=== PATIENT | female | born 1940 | race Caucasian/White ===

== ENCOUNTER 2019-04-30 19:19 | Emergency (ER) | payer MEDICARE, OTHER ==
[~2019-04-30] VITALS: Ht 162.6 cm; Wt 76.4 kg
--- NOTE | 2019-04-30 20:24 | REP ---
RIGHT ELBOW COMPLETE: 04/30/2019. Clinical history: Trauma, fall. Findings: No prior study. Radial head and capitellum align normally on all four views with no radial head fracture. Proximal radius and olecranon with the ulnar shaft were all unremarkable. There is soft tissue swelling about the olecranon that may reflect some traumatic bursitis. I do not see fracture, avulsion, elbow joint effusion or abnormal soft-tissue calcification. There is some minor spurring at the lateral epicondyle, chronic. Impression: 1. Some minor soft tissue swelling over the elbow that may reflect some traumatic bursitis or hematoma. I do not see a fracture, avulsion, joint effusion or other acute bony finding. Electronically Signed by Chris Rosario MD 04/30/2019 08:30 P
[2019-04-30] MEDS ORDERED: COMBAER6 INH (21:26)
[2019-04-30] MEDS ORDERED: HYDR25TAB (21:26)
[2019-04-30] MEDS ORDERED: MECL-86 PO (21:26)
[2019-04-30] MEDS ORDERED: GABA-1171 (21:26)
[2019-04-30] MEDS ORDERED: VOLT1GEL15 TOP (21:26)
[2019-04-30] MEDS ORDERED: OMEP-218 (21:26)
[2019-04-30] MEDS ORDERED: AMOX875T2 (21:26)
[2019-04-30] MEDS ORDERED: TRAM50TA2 (21:26)
[2019-04-30] MEDS ORDERED: PRIM50TA6 PO (21:26)
[2019-04-30] MEDS ORDERED: TRAM50TA2 PO (22:28)
[2019-04-30] MEDS ORDERED: traMADol 50 MG TAB PO ONE (22:30)
[2019-04-30 22:32] VITALS: BP 146/67
== END 2019-04-30 22:39 | disposition home or self-care (01) ==
LOC: M ED 19:19
DX: S50.01XA Contusion of right elbow, initial encounter (principal); W01.198A Fall on same level from slipping, tripping and stumbling with subsequent striking against other object, initial encounter; Y92.098 Other place in other non-institutional residence as the place of occurrence of the external cause; I10 Essential (primary) hypertension; M19.90 Unspecified osteoarthritis, unspecified site; M54.9 Dorsalgia, unspecified; G25.81 Restless legs syndrome; Z88.8 Allergy status to other drugs, medicaments and biological substances; Z79.899 Other long term (current) drug therapy; Z79.2 Long term (current) use of antibiotics; Z79.891 Long term (current) use of opiate analgesic

== ENCOUNTER → 2019-06-09 | Outpatient (REF) | payer MEDICARE, OTHER ==
[~2019-06-09] MED LIST: AMOX875T2; COMBAER6 INH; GABA-1171; HYDR25TAB; MECL-86 PO; OMEP-218; PRIM50TA6 PO; TRAM50TA2; TRAM50TA2 PO; VOLT1GEL15 TOP
[2019-06-09 14:01] LABS: BASO % 0.4 % (0.0-1.0); EOS % 0.2 % (0.0-3.0); HEMATOCRIT 35.2 % (36.0-47.0); HEMOGLOBIN 11.8 g/dl (12.0-15.5); LYMPH # 2.6 10^3/uL (1.5-5.0); LYMPH % 48.1 % (24.0-44.0); MEAN CORPUSCULAR HEMOGLOBIN 31.4 pg (27.0-33.0); MEAN CORPUSCULAR HGB CONC 33.5 g/dl (32.0-36.5); MEAN CORPUSCULAR VOLUME 93.6 fl (80.0-96.0); MONO # 0.5 10^3/uL (0.0-0.8); MONO % 8.5 % (0.0-5.0); NEUTROPHILS # 2.3 10^3/uL (1.5-8.5); NEUTROPHILS % 42.6 % (36.0-66.0); PLATELET COUNT, AUTOMATED 226 10^3/uL (150-450); RED BLOOD COUNT 3.76 10^6/uL (4.00-5.40); WHITE BLOOD COUNT 5.4 10^3/uL (4.0-10.0)
[2019-06-09 14:23] LABS: ALBUMIN 3.4 GM/DL (3.2-5.2); BILIRUBIN,TOTAL 0.5 MG/DL (0.2-1.0); CALCIUM LEVEL 10.2 MG/DL (8.8-10.2); CREATININE FOR GFR 1.02 MG/DL (0.55-1.30); GLOMERULAR FILTRATION RATE 55.9 (>39); VALPROIC ACID (DEPAKOTE) 68.2 UG/ML (50.0-100.0)
== END ==
LOC: M LABNEURO 13:08
PROVIDERS: ATTEND Psychiatry & Neurology Neurology
DX: G40.909 Epilepsy, unspecified, not intractable, without status epilepticus (principal)

== ENCOUNTER → 2019-09-03 | Outpatient (REF) | payer MEDICARE, OTHER ==
[2019-09-03 12:56] LABS: BASO % 0.3 % (0.0-1.0); EOS % 0.2 % (0.0-3.0); HEMATOCRIT 36.6 % (36.0-47.0); HEMOGLOBIN 12.2 g/dl (12.0-15.5); LYMPH # 2.4 10^3/uL (1.5-5.0); MEAN CORPUSCULAR HEMOGLOBIN 31.4 pg (27.0-33.0); MEAN CORPUSCULAR HGB CONC 33.3 g/dl (32.0-36.5); MEAN CORPUSCULAR VOLUME 94.1 fl (80.0-96.0); MONO # 0.6 10^3/uL (0.0-0.8); MONO % 9.7 % (0.0-5.0); NEUTROPHILS % 49.5 % (36.0-66.0); PLATELET COUNT, AUTOMATED 275 10^3/uL (150-450); RED BLOOD COUNT 3.89 10^6/uL (4.00-5.40); WHITE BLOOD COUNT 6.1 10^3/uL (4.0-10.0)
[2019-09-03 13:43] LABS: ALBUMIN 3.3 GM/DL (3.2-5.2); ALT/SGPT 25 U/L (12-78); BILIRUBIN,TOTAL 0.2 MG/DL (0.2-1.0); BLOOD UREA NITROGEN 23 MG/DL (7-18); CALCIUM LEVEL 10.4 MG/DL (8.8-10.2); CARBON DIOXIDE LEVEL 32 MEQ/L (21-32); CHLORIDE LEVEL 104 MEQ/L (98-107); CHOLESTEROL LEVEL 223 MG/DL (<200); CHOLESTEROL RISK RATIO 4.744 (<5); CREATININE FOR GFR 1.22 MG/DL (0.55-1.30); FERRITIN 92 NG/ML (8-252); FOLATE 11.7 NG/ML; FREE T4 1.07 NG/DL (0.76-1.46); GLOMERULAR FILTRATION RATE 45.5 (>39); GLUCOSE, FASTING 102 MG/DL (70-100); HDL CHOLESTEROL 47 MG/DL (>40); LDL CHOLESTEROL 139 MG/DL (<100); NON-HDL-C 176 MG/DL; POTASSIUM SERUM 4.8 MEQ/L (3.5-5.1); SODIUM LEVEL 141 MEQ/L (136-145); THYROID STIMULATING HORMONE 0.831 uIU/ML (0.358-3.740); TOTAL 25(OH) VITAMIN D 38.8 NG/ML (30.0-100.0); TRIGLYCERIDES LEVEL 185 MG/DL (<150); VITAMIN B12 LEVEL > 2000 PG/ML
== END ==
LOC: M SFHCPLAZ 10:11
PROVIDERS: ATTEND Nurse Practitioner Family
DX: R53.83 Other fatigue (principal); I10 Essential (primary) hypertension; D64.9 Anemia, unspecified; Z13.220 Encounter for screening for lipoid disorders; Z79.899 Other long term (current) drug therapy
CPT/HCPCS: 36415; 80053; 80061; 82306; 82607; 82728; 82746; 84439; 84443; 85025; G0463

== ENCOUNTER → 2020-01-15 | Outpatient (REF) | payer MEDICARE, OTHER ==
[2020-01-15 18:21] LABS: CALCIUM LEVEL 10.1 MG/DL (8.8-10.2); CREATININE FOR GFR 1.3 MG/DL (0.55-1.30); GLOMERULAR FILTRATION RATE 42.3 (>39)
== END ==
LOC: M SFHCPLAZ 14:25
PROVIDERS: ATTEND Family Medicine
DX: N18.30 Chronic kidney disease, stage 3 unspecified (principal)

== ENCOUNTER → 2020-01-17 | Outpatient (CLI) | payer MEDICARE, OTHER | LOC: M LABSMTC 10:31 | PROVIDERS: ATTEND Orthopaedic Surgery | DX: Z01.812 Encounter for preprocedural laboratory examination (principal); Z20.828 Contact with and (suspected) exposure to other viral communicable diseases ==

== ENCOUNTER → 2020-02-28 | Outpatient (CLI) | payer MEDICARE, OTHER | LOC: M LABSMTC 11:05 | PROVIDERS: ATTEND Orthopaedic Surgery | DX: Z01.812 Encounter for preprocedural laboratory examination (principal); Z20.828 Contact with and (suspected) exposure to other viral communicable diseases ==

== ENCOUNTER 2020-05-10 16:12 | Emergency (ER) | payer MEDICARE, OTHER ==
[~2020-05-10] VITALS: Ht 160 cm; Wt 75.0 kg
[~2020-05-10 16:12] MED LIST changes: +HYDR-3490; -HYDR25TAB
--- NOTE | 2020-05-10 16:51 | REP ---
INDICATION: TRAUMA. COMPARISON: No comparison study. TECHNIQUE: Two views.. FINDINGS: The lungs are well inflated and free of infiltrate. The pleural angles are sharp. The heart size is normal. Pulmonary vasculature is not increased. No significant bony abnormality is seen. Thoracic aorta is somewhat tortuous and calcific. IMPRESSION: No active disease.. <Electronically signed by Lucio Diaz > 05/10/20 [id number]
--- NOTE | 2020-05-10 16:53 | REP ---
INDICATION: TRAUMA. COMPARISON: None. TECHNIQUE: Three views of the right shoulder are obtained. FINDINGS: Three views right shoulder demonstrate diffuse osteopenia. There is periarticular soft tissue calcification adjacent to the superolateral humeral head consistent with calcific tendinitis or bursitis. There is acromion process spurring along its superior angle. Mild AC joint osteoarthritic spurring is seen. No erosive changes seen. No fracture or subluxation is noted. IMPRESSION: No traumatic abnormality noted. Soft tissue calcification consistent with calcific tendinitis or bursitis. Osteopenia and AC joint spurring. <Electronically signed by Lucio Diaz > 05/10/20 [id number]
[2020-05-10] MEDS ORDERED: traMADol 50 MG TAB PO ONE (18:45)
[2020-05-10] MEDS ORDERED: LIDOCAINE 5% (LIDODERM) PATCH TD ONE (18:45)
--- NOTE | 2020-05-10 20:04 | REPVR ---
PROCEDURE INFORMATION: Exam: CT Chest Without Contrast; Diagnostic Exam date and time: 05/10/2020 7:11 PM Age: 79 years old Clinical indication: Injury or trauma; Fall; Blunt trauma (contusions or hematomas); Additional info: Left anterior rib pain, R scapular pain post fall TECHNIQUE: Imaging protocol: Diagnostic computed tomography of the chest without contrast. 3D rendering (Not supervised by radiologist): MIP and/or 3D reconstructed images were created by the technologist. Radiation optimization: All CT scans at this facility use at least one of these dose optimization techniques: automated exposure control; mA and/or kV adjustment per patient size (includes targeted exams where dose is matched to clinical indication); or iterative reconstruction. COMPARISON: [place] Chest, 2 view PA, Lat 05/10/2020 4:27 PM FINDINGS: Thyroid: Unremarkable. Trachea: Normal. Bronchial tree: Normal. Lungs: There are several small pulmonary nodules in both upper lobes measuring up to 3 mm (images 26, 30, 33, 34, 35, 36, 40, 43, 45, 46, 47, and 49 of the axial series 201). There are mild paraseptal emphysematous changes in the upper lobes. No lung consolidation or pulmonary contusion is noted. Pleural spaces: Normal. No pneumothorax or pleural effusion. Heart: No cardiomegaly or pericardial effusion. There are coronary artery and mitral annular calcifications. Mediastinal space: No mediastinal mass, fluid collection, or pneumomediastinum. Aorta: No thoracic aortic aneurysm or intramural hematoma is noted. There are extensive atherosclerotic calcifications. Lymph nodes: There are subcentimeter mediastinal lymph nodes. However, no abnormally enlarged lymph nodes measuring greater than 1 cm in short axis are noted. Gallbladder and bile ducts: There has been a cholecystectomy. There is no fluid collection in the gallbladder fossa. The common bile duct is dilated and measures 10 mm in diameter at the level of the marleni hepatis but tapers to a normal caliber of 5 mm in diameter at the level of the head of the pancreas. No calcified stones are seen in the common bile duct. Spleen: Unremarkable. No splenomegaly is noted. Adrenal glands: Normal. No adrenal mass is noted. Limited kidneys: There are benign-appearing cysts in both kidneys measuring up to 2.3 cm in the upper pole of the right kidney, for which follow-up is not necessary. The kidneys were not fully imaged. Bones/joints: There is no fracture or dislocation. No suspicious osteolytic or osteoblastic lesion. There is a mild levoscoliosis of the thoracic spine. There are endplate spurs in the thoracic spine. Soft tissues: There is a 1 mm calcific density in the right supraspinatus tendon, which is compatible with calcific tendinitis. No soft tissue fluid collection. IMPRESSION: 1. No noncontrast CT evidence for acute traumatic injury in the chest. 2. Several pulmonary nodules in both upper lobes measuring up to 3 mm. For patients at low risk (minimal or absent history of smoking and of other known risk factors), no routine follow-up is indicated. For patients at high risk (history of smoking or of other known risk factors), consider optional CT Chest at 12 months. (Reference: Adalgisa) 3. Right supraspinatus calcific tendinitis. COMMENTS: Consistent with the [employer]'s Incidental Findings Committee white paper (J Am Beni Radiol 2018): Any incidental renal lesion less than 1 cm or classified as too small to characterize, or any incidental cystic renal lesion characterized as simple-appearing, is likely benign. No follow-up imaging is recommended for these lesions per consensus recommendations based on imaging criteria. REFERENCES: Adalgisa H, et al. Guidelines for Management of Incidental Pulmonary Nodules Detected on CT Images: From the Fleischner Society 2017. Radiology. 2017;284(1):228-243. Electronically signed by: Ramirez Luciano On 05/10/2020 20:04:23 PM
[2020-05-10] MEDS ORDERED: TRAM50TA2 PO (20:35)
[2020-05-10] MEDS ORDERED: ASPE4PAD TOP (20:35)
[2020-05-10 20:48] VITALS: BP 180/88
[2020-05-10] MEDS ORDERED: **NOTE PATIENT COMMENT** MISC XX SCH (21:00)
--- NOTE | 2020-05-11 11:52 | ED PDOC ---
Post-Departure Follow-Up ct chest faxed to aleena marroquin for fu Rashaad Mcgregor MD May 11, 2020 11:52
== END 2020-05-10 20:51 | disposition home or self-care (01) ==
LOC: M ED 16:12
DX: R07.89 Other chest pain (principal); S40.011A Contusion of right shoulder, initial encounter; W18.12XA Fall from or off toilet with subsequent striking against object, initial encounter; Y92.9 Unspecified place or not applicable; Y93.E5 Activity, floor mopping and cleaning; Y99.9 Unspecified external cause status; I25.84 Coronary atherosclerosis due to calcified coronary lesion; R59.9 Enlarged lymph nodes, unspecified; N28.1 Cyst of kidney, acquired; M75.31 Calcific tendinitis of right shoulder; M85.811 Other specified disorders of bone density and structure, right shoulder; M25.711 Osteophyte, right shoulder; I10 Essential (primary) hypertension; R91.8 Other nonspecific abnormal finding of lung field; Z79.899 Other long term (current) drug therapy; Z88.8 Allergy status to other drugs, medicaments and biological substances

== ENCOUNTER → 2020-05-25 | Outpatient (CLI) | payer MEDICARE, OTHER ==
[~2020-05-25] MED LIST changes: +ASPE4PAD TOP
[2020-05-25 12:19] LABS: CREATININE FOR GFR 1.29 MG/DL (0.55-1.30); GLOMERULAR FILTRATION RATE 42.6 (>39)
== END ==
LOC: M LAB 11:03
PROVIDERS: ATTEND Pain Medicine Interventional Pain Medicine
DX: M96.1 Postlaminectomy syndrome, not elsewhere classified (principal)

== ENCOUNTER → 2020-06-01 | Outpatient (CLI) | payer MEDICARE, OTHER ==
[~2020-06-01] MED LIST changes: +PROHANCE 279.3MG/ML 15ML VIAL As Ordered ONE
--- NOTE | 2020-06-01 10:43 | REPVR ---
PROCEDURE INFORMATION: Exam: MR Lumbar Spine Without and With Contrast Exam date and time: 06/01/2020 10:18 AM Age: 80 years old Clinical indication: Low back pain; Prior surgery; Surgery date: 6+ months; Surgery type: Laminectomy 30 yrs ago; Additional info: Postlaminectomy syndrome, not elsewhere classified TECHNIQUE: Imaging protocol: Multiplanar magnetic resonance images of the lumbar spine without and with intravenous contrast. Contrast material: PROHANCE; Contrast volume: 8 ml; Contrast route: INTRAVENOUS (IV); COMPARISON: No relevant prior studies available. FINDINGS: Vertebrae: There is a pronounced lumbar dextroscoliotic curvature. There is mild ventral wedging of the L1 body with a Schmorl's node, chronic. Vertebral body heights are otherwise within normal limits. Diffuse heterogeneity of marrow is most suggestive of age-related marrow conversion. There are superimposed scattered hemangiomas. Spinal cord: Normal signal. No cord compression. L1-L2: There is a diffuse disc osteophyte complex. There is moderate facet hypertrophy. There is mild right and gcaa-di-cijjimdi left neural foraminal narrowing. L2-L3: There is diffuse disc bulging. There is moderate facet and ligamentous hypertrophy. There is spyq-sk-cgcbnbzu left neural foraminal narrowing. L3-L4: There is diffuse disc bulging. There is severe facet and ligamentous hypertrophy. There is mild bilateral neural foraminal narrowing. L4-L5: There are right hemilaminectomy changes. There is shallow disc bulging. There is moderate to severe facet hypertrophy. There is mild left neural foraminal narrowing. L5-S1: There is shallow disc bulging. There is moderate to severe facet hypertrophy. There is fhje-ot-fzhgbkfs right neural foraminal narrowing. Soft tissues: Unremarkable. IMPRESSION: Degenerative disc disease and spondylosis in a background of pronounced dextroscoliosis. Changes contribute to multilevel fjih-lo-ijhdlkad neural foraminal narrowing. Electronically signed by: Vickie Agustin On 06/01/2020 10:44:03 AM
== END ==
LOC: M RAD 08:55
PROVIDERS: ATTEND Pain Medicine Interventional Pain Medicine
DX: M96.1 Postlaminectomy syndrome, not elsewhere classified (principal)
CPT/HCPCS: 72158; A9576

== ENCOUNTER → 2020-06-14 | Outpatient (CLI) | payer MEDICARE, OTHER ==
[~2020-06-14] MED LIST changes: -PROHANCE 279.3MG/ML 15ML VIAL As Ordered ONE
[2020-06-14 09:50] LABS: HEMATOCRIT 37.4 % (36.0-47.0); HEMOGLOBIN 12.4 g/dl (12.0-15.5); MEAN CORPUSCULAR HEMOGLOBIN 32.3 pg (27.0-33.0); MEAN CORPUSCULAR HGB CONC 33.2 g/dl (32.0-36.5); MEAN CORPUSCULAR VOLUME 97.4 fl (80.0-96.0); PLATELET COUNT, AUTOMATED 218 10^3/uL (150-450); RED BLOOD COUNT 3.84 10^6/uL (4.00-5.40); WHITE BLOOD COUNT 6.1 10^3/uL (4.0-10.0)
[2020-06-14 10:26] LABS: ALBUMIN 3.3 GM/DL (3.2-5.2); BILIRUBIN,TOTAL 0.3 MG/DL (0.2-1.0); CALCIUM LEVEL 10.6 MG/DL (8.8-10.2); CHOLESTEROL RISK RATIO 2.984 (<5); CREATININE FOR GFR 1.13 MG/DL (0.55-1.30); GLOMERULAR FILTRATION RATE 49.6 (>39); POTASSIUM SERUM 4.6 MEQ/L (3.5-5.1); TOTAL PROTEIN 6.8 GM/DL (6.4-8.2)
[2020-06-14 11:24] LABS: HEMOGLOBIN A1c 5.4 %
== END ==
LOC: M LAB 08:54
PROVIDERS: ATTEND Nurse Practitioner Family
DX: E78.00 Pure hypercholesterolemia, unspecified (principal); R73.01 Impaired fasting glucose; D64.9 Anemia, unspecified

== ENCOUNTER → 2020-08-06 | Outpatient (CLI) | payer MEDICARE, OTHER ==
--- NOTE | 2020-08-06 14:45 | REPPI ---
INDICATION: Z01.818 PRE OP EVALUATION COMPARISON: 05/10/2020. TECHNIQUE: PA/Lateral FINDINGS: Lungs: Clear, no infiltrate. Heart: Normal in size. Mediastinum: There is calcification of the thoracic aorta. The mediastinal silhouette is unchanged. Pleural angles: Unremarkable.. Bones and soft tissues: There is osteopenia. There are degenerative changes of the spine without compression deformity. There is curvature of the thoracolumbar spine convex to the right. IMPRESSION: No acute pulmonary disease. <Electronically signed by Doe Duke > 08/06/20 [id number]
== END ==
LOC: M PLAIMG 14:23
PROVIDERS: ATTEND Family Medicine
DX: Z01.818 Encounter for other preprocedural examination (principal); M85.88 Other specified disorders of bone density and structure, other site; M19.031 Primary osteoarthritis, right wrist
CPT/HCPCS: 36415; 71046; 80048; 93005; G0463

== ENCOUNTER → 2020-08-06 | Outpatient (REF) | payer MEDICARE, OTHER ==
[2020-08-06 17:52] LABS: BLOOD UREA NITROGEN 17 MG/DL (7-18); CALCIUM LEVEL 10.7 MG/DL (8.8-10.2); CARBON DIOXIDE LEVEL 33 MEQ/L (21-32); CHLORIDE LEVEL 106 MEQ/L (98-107); CREATININE FOR GFR 0.92 MG/DL (0.55-1.30); GLOMERULAR FILTRATION RATE > 60.0 (>39); GLUCOSE, FASTING 95 MG/DL (70-100); POTASSIUM SERUM 4.3 MEQ/L (3.5-5.1); SODIUM LEVEL 140 MEQ/L (136-145)
== END ==
LOC: M SFHCPLAZ 14:23
PROVIDERS: ATTEND Family Medicine
DX: Z01.818 Encounter for other preprocedural examination (principal); M19.031 Primary osteoarthritis, right wrist

== ENCOUNTER 2020-09-25 06:31 | Observation (INO) | payer MEDICARE, OTHER ==
[~2020-09-25] VITALS: Ht 160 cm; Wt 78.4 kg
[~2020-09-25 06:31] MED LIST changes: -GABA-1171; +GABA-1171 PO; -HYDR-3490; +HYDR-3490 PO
[2020-09-25 07:09] LABS: BASO % 0.4 % (0.0-1.0); EOS % 0.4 % (0.0-3.0); HEMATOCRIT 36.8 % (36.0-47.0); HEMOGLOBIN 12.3 g/dl (12.0-15.5); LYMPH % 56.9 % (24.0-44.0); MEAN CORPUSCULAR HEMOGLOBIN 32.1 pg (27.0-33.0); MEAN CORPUSCULAR HGB CONC 33.4 g/dl (32.0-36.5); MEAN CORPUSCULAR VOLUME 96.1 fl (80.0-96.0); MONO # 0.5 10^3/uL (0.0-0.8); NEUTROPHILS # 1.7 10^3/uL (1.5-8.5); NEUTROPHILS % 32.1 % (36.0-66.0); PLATELET COUNT, AUTOMATED 179 10^3/uL (150-450); RED BLOOD COUNT 3.83 10^6/uL (4.00-5.40); WHITE BLOOD COUNT 5.3 10^3/uL (4.0-10.0)
--- NOTE | 2020-09-25 07:20 | REPVR ---
PROCEDURE INFORMATION: Exam: CT Head Without Contrast Exam date and time: 09/25/2020 7:08 AM Age: 80 years old Clinical indication: Other: CVA; Additional info: CVA - nursing interventions must not delay CT TECHNIQUE: Imaging protocol: Computed tomography of the head without contrast. Radiation optimization: All CT scans at this facility use at least one of these dose optimization techniques: automated exposure control; mA and/or kV adjustment per patient size (includes targeted exams where dose is matched to clinical indication); or iterative reconstruction. Other technique: STROKE PROTOCOL was implemented. COMPARISON: No relevant prior studies available. FINDINGS: Brain: There is mild, diffuse parenchymal volume loss. There is a small area of low attenuation likely due to a chronic lacunar infarct in the right caudate and right basal ganglia. Another area of low attenuation is seen in the left basal ganglia inferiorly which may be a chronic lacunar infarct or a prominent VR space. There is a small area of encephalomalacia in the left cerebellar hemisphere. The cortical/white matter interfaces are preserved throughout the brain. There is no evidence of intracranial hemorrhage. There is symmetric prominence of the CSF spaces in the frontal regions, probably related to parenchymal volume loss. Cerebral ventricles: The ventricular system demonstrates mild diffuse compensatory enlargement. Paranasal sinuses: The visualized paranasal sinuses are clear. Mastoid air cells: The mastoid air cells are clear. Bones/joints: No acute fractures of the skull are identified. Soft tissues: The soft tissues appear unremarkable. IMPRESSION: 1. No evidence of acute infarct, mass, or hemorrhage. 2. Small areas of low attenuation, probably related to small prior infarcts in the right caudate/basal ganglia, left basal ganglia, and left cerebellar hemisphere. 3. Mild diffuse parenchymal volume loss. ASSESSMENT: ASPECTS ([place] Stroke Program Early CT Score) is 10. Electronically signed by: Hodan Mansfield On 09/25/2020 07:20:10 AM
[2020-09-25 07:21] LABS: INR 0.86; PROTHROMBIN TIME 11.9 SECONDS (12.5-14.3)
[2020-09-25 07:22] LABS: PARTIAL THROMBOPLASTIN TIME 27.5 SECONDS (24.2-38.5)
--- NOTE | 2020-09-25 07:23 | REPVR ---
PROCEDURE INFORMATION: Exam: XR Chest Exam date and time: 09/25/2020 6:48 AM Age: 80 years old Clinical indication: Other: CVA TECHNIQUE: Imaging protocol: XR of the chest. Views: 1 view. COMPARISON: 1. [place] Chest, 2 view PA, Lat 05/10/2020 4:27:02 PM 2. CR CHEST 2 VIEWS 08/06/2020 2:38 PM FINDINGS: Lungs: A small, peripheral, pleuroparenchymal density in the right upper lobe appears unchanged from the prior chest x-rays. There is no significant consolidation. Pleural spaces: No pleural effusions or pneumothorax identified. Heart/Mediastinum: The heart is normal in size. Vasculature: Aortic knob calcifications are noted. Bones/joints: Unremarkable. IMPRESSION: No evidence of acute pleural or parenchymal disease. Electronically signed by: Hodan Mansfield On 09/25/2020 07:22:48 AM
[2020-09-25] MEDS ORDERED: OMEP-218 PO (07:31)
[2020-09-25] MEDS ORDERED: MELO7.5T35 (07:31)
[2020-09-25] MEDS ORDERED: DIVA250T67 PO (07:31)
[2020-09-25 07:36] LABS: ALBUMIN 3.1 GM/DL (3.2-5.2); ALT/SGPT 11 U/L (12-78); BILIRUBIN,DIRECT < 0.1 MG/DL (0.0-0.2); BILIRUBIN,TOTAL 0.2 MG/DL (0.2-1.0); BLOOD UREA NITROGEN 20 MG/DL (7-18); CALCIUM LEVEL 9.9 MG/DL (8.8-10.2); CARBON DIOXIDE LEVEL 30 MEQ/L (21-32); CHLORIDE LEVEL 111 MEQ/L (98-107); CK-MB VALUE MASS < 1.0 NG/ML (<3.6); CPK CREATINE PHOSPHOKINASE 24 U/L (26-192); CREATININE FOR GFR 1.07 MG/DL (0.55-1.30); GLOMERULAR FILTRATION RATE 52.8 (>39); GLUCOSE, FASTING 81 MG/DL (70-100); MB/CK RELATIVE INDEX 4.17 (< OR =4); POTASSIUM SERUM 3.8 MEQ/L (3.5-5.1); SODIUM LEVEL 142 MEQ/L (136-145); TOTAL PROTEIN 6.3 GM/DL (6.4-8.2); TROPONIN I < 0.02 NG/ML (< 0.10)
[2020-09-25] MEDS ORDERED: ISOVUE-370 76% 100ML VIAL As Ordered ONE (07:59)
--- NOTE | 2020-09-25 08:46 | REP ---
INDICATION: left chest pain COMPARISON: None. TECHNIQUE: Axial contrast enhanced images from the thoracic inlet to the upper abdomen using pulmonary embolus technique with multiplanar re-formations. 75 ml Isovue 370 intravenous contrast material administered without complication. This CT examination was performed using the following dose reduction techniques: Automated exposure control, adjustment of mA and/or kv according to the patient's size, and use of iterative reconstruction technique. FINDINGS: Satisfactory enhancement of the pulmonary vasculature is achieved and no filling defects are identified to suggest pulmonary embolus. Atherosclerotic changes to the thoracic aorta and coronary arteries noted. No evidence for aortic aneurysm or dissection. No cardiomegaly or pericardial effusion. Lung ordonez demonstrate diffuse chronic appearing age-related interstitial changes. No focal consolidation, effusion, or pneumothorax. Tracheobronchial tree is patent. No adenopathy. Musculoskeletal structures demonstrate age-related degenerative changes. Limited upper abdomen demonstrates normal bilateral adrenal glands and bilateral renal lesions which cannot definitively be characterized based on current examination. IMPRESSION: 1. No evidence for pulmonary embolus. 2. No acute mediastinal or pleural parenchymal process. 3. Renal lesions warrant outpatient clinical follow-up pre and postcontrast CT of the abdomen and pelvis <Electronically signed by Rudy Cunningham > 09/25/20 [id number]
[2020-09-25] MEDS ORDERED: ENOXAPARIN 40MG/0.4ML SYRINGE (J1650 PER 10MG) SC SCH (09:00)
[2020-09-25 09:09] LABS: RSV AMPLIFICATION NEGATIVE (NEGATIVE)
[2020-09-25] MEDS ORDERED: ACETAMINOPHEN TAB 650MG DOSE (2X325MG) PO ONE (09:35)
[2020-09-25] MEDS ORDERED: COMBIVENT RESPIMAT 100-20MCG INHALER 4GM INH PRN (10:45)
[2020-09-25] MEDS ORDERED: ASPIRIN 81MG ENTERIC TABLET PO SCH (11:00)
--- NOTE | 2020-09-25 11:14 | HPE ---
HISTORY AND PHYSICAL DATE OF ADMISSION: 09/25/2020 CHIEF COMPLAINT: ? TIA, left chest pain. HISTORY OF PRESENT ILLNESS: Michael Singleton is a 80-year-old patient of Perla Tinoco at the [facility]. She came to the emergency room today because of left chest pain. Her also described dysarthria, which he described as "slurred speech" and it is thought that her left wide was weak. She has an on inconsistent exam, which will be summarized below, and she is being admitted essentially to sort these problems out. PAST MEDICAL HISTORY: 1. Seizure disorder followed by [facility]. 2. Restless leg syndrome. 3. COPD. 4. Benign essential tremors. 5. Subarachnoid hemorrhage 07/2014. 6. GERD. 7. Chronic low back pain. 8. Gastric ulcer and intermittent constipation problems. PAST SURGICAL HISTORY: 1. Appendectomy. 2. Hysterectomy. 3. Left knee repair. 4. Tubal ligation. 5. Lumbar laminectomy. 6. Cholecystectomy. 7. Bilateral cataract extractions. 8. Lumpectomy right breast with benign pathology. 9. Hammertoe repair. 10. Right carpal tunnel syndrome 01/2020. 11. Right wrist surgery 07/2020. FAMILY HISTORY: Father had hypertension and heart disease. Mother had hypertension and heart disease. Brother with lung cancer. Son with diabetes. SOCIAL HISTORY: Does not smoke or drink alcohol. . Supportive spouse. ALLERGIES: ZARONTIN, PROPYLENE GLYCOL, BENADRYL, PARABENS, TRAMADOL (increased risk of seizures). HOME MEDICATIONS: 1. Primidone 50 mg b.i.d. 2. Depakote 250 mg b.i.d. 3. Omeprazole 20 mg daily. 4. Hydrochlorothiazide 25 mg daily. 5. Gabapentin 100 mg b.i.d. 6. Combivent 20/100 one puff b.i.d. 7. Lidoderm patch as needed for back. REVIEW OF SYSTEMS: She has "a pounding headache." She denies visual disturbance, diplopia, or neck stiffness. Feels that her left side is weak. Has left chest pain that is positional and made worse by palpation. It is not exertional and does not radiate. No hemoptysis, rectal bleeding, or epistaxis. PHYSICAL EXAMINATION: VITAL SIGNS: Blood pressure 177/80, pulse 63, respirations 16, 95% O2 saturation. GENERAL APPEARANCE: She is lying in bed and looks mildly anxious. G HEENT: There is no facial droop or weakness. Pupils are equal, round, and reactive to light. Speech is slightly dysarthric; I do not know her baseline. NECK: Supple with no carotid bruits. LUNGS: Clear. HEART: Regular rhythm without murmur. ABDOMEN: Soft and nontender with no masses. EXTREMITIES: No clubbing, cyanosis, or edema. Her right arm is in a splint. Her left chest wall is tender to palpate diffusely and reproduces her chief complaint of chest pain. NEUROLOGIC: Shows some nonorganic features. When asked to protrude her tongue, it protrudes sharply to the right. She has normal strength in both upper extremities. She expresses some weakness in the left lower extremity, but it is not reproducible and there is downward pressure of the left leg when asked to elevate her right leg. DIAGNOSTIC STUDIES: CT of the brain with no acute changes. CBC with white count 5.3, hemoglobin 12.3, platelets 179,000, sodium 142, potassium 3.8, BUN 20, creatinine 1.0, glucose 81. Troponin is undetectable. Angiographic CT of the chest showed no pulmonary embolism and no acute pulmonary findings. They make note of renal lesions that require some outpatient attention. IMPRESSION: 1. Chest pain that seems chest wall in origin. I will repeat the enzymes, but I think this would best be treated with heat and reassurance. No evidence this is cardiac. 2. Left-sided weakness. Exam is inconsistent with acute neurologic process. MRI of the brain has been ordered. Will start aspirin daily. 3. Seizure disorder. Continue anticonvulsant therapy. 4. Chronic obstructive pulmonary disease (COPD). Continue bronchodilator therapy. Anticipate discharge tomorrow if nothing acute found on workup.
--- NOTE | 2020-09-25 11:19 | HPE ---
HISTORY AND PHYSICAL DATE OF ADMISSION: 09/25/2020 ADDENDUM: Discussed advanced directives with Michael in the presence of her . She has previously, when living out of state, had a DO NOT RESUSCITATE order. She made out a MOLST form requesting DNR status, DO NOT INTUBATE (DNI), and no tube feedings. Trial of IV fluids, hospitalization, and antibiotics if necessary were acceptable.
--- NOTE | 2020-09-25 13:21 | REPVR ---
PROCEDURE INFORMATION: Exam: MR Head Without Contrast Exam date and time: 09/25/2020 12:27 PM Age: 80 years old Clinical indication: Other: Headach and chest pains; Additional info: ? CVA TECHNIQUE: Imaging protocol: MR of the head without contrast. 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 There is mild patchy increased T2 signal intensity within the bilateral cerebral periventricular white matter, consistent with chronic microvascular ischemic changes. There is no abnormal diffusion weighted signal intensity to suggest an acute ischemic event. Gradient echo sequences demonstrate small amount of chronic hemosiderin in the right frontal convexity series 701, image 21. There is mild diffuse cerebral atrophy present, consistent with this patient's age. Cerebral ventricles: The ventricular system demonstrates mild diffuse compensatory enlargement. Bones/joints: Unremarkable. Paranasal sinuses: Normal as visualized. No acute sinusitis. Mastoid air cells: Normal as visualized. No mastoid effusion. Orbital cavity: Unremarkable. Soft tissues: Unremarkable. IMPRESSION: 1. No acute infarction, masses or hemorrhage is seen. No acute intracranial abnormality is identified. 2. Diffuse age-related cerebral atrophy and mild chronic microvascular white matter ischemic changes, without evidence of an acute intracranial abnormality. 3. There has been no adverse interval change since the previous study. 4. 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 Electronically signed by: Julito Samuel On 09/25/2020 13:21:27 PM
[2020-09-25 14:31] VITALS: BP 160/74
--- NOTE | 2020-09-25 20:49 | ECGEPIP ---
[facility] - ED Test Date: 2020-09-25 Pat Name: SHAHNAZ MORENO Department: Room: - Gender: Female Nurse Staff Industrial: DAMIR : 1940 Requested By: KEVIN Sierra Order Number: [id number] Reading MD: Tamara Barkley Measurements Intervals [place] Rate: 68 P: 62 SC: 144 QRS: 63 QRSD: 76 T: 80 QT: 404 QTc: 429 Interpretive Statements Normal sinus rhythm NSTTW abnormalities No prior Electronically Signed on 09-25-2020 20:48:57 EDT by Tamara Barkley
[2020-09-25] MEDS ORDERED: PRIMIDONE 50 MG TAB PO SCH (21:00)
[2020-09-25] MEDS ORDERED: GABAPENTIN 100 MG CAP PO SCH (21:00)
[2020-09-25] MEDS ORDERED: DIVALPROEX 250 MG TAB PO SCH (21:00)
[2020-09-26] MEDS ORDERED: OMEPRAZOLE 20 MG CAP PO SCH (09:00)
--- NOTE | 2020-09-26 15:04 | DSES ---
DISCHARGE SUMMARY DATE OF ADMISSION: 09/25/2020 DATE OF DISCHARGE: 09/25/2020 Michael Singleton signed out against medical advice shortly after her admission. Her MRI came back showing no signs of stroke or ischemia. Nursing staff called me and said the patient was signing out against medical advice and left the emergency room. She was advised to continue her usual medical regimen and follow up with her primary care provider in a week.
--- NOTE | 2020-09-28 11:32 | ED PDOC ---
Post-Departure Follow-Up radiology report faxed to Tamara Mcbride MD Sep 28, 2020 11:32
== END 2020-09-25 15:00 | disposition left against medical advice (07) ==
LOC: M ED 06:31 → M ED INP 10:44 → ENRESERV 14:59
PROVIDERS: ADMIT Family Medicine; ATTEND Family Medicine
DX: R07.89 Other chest pain (principal); G81.94 Hemiplegia, unspecified affecting left nondominant side; G40.909 Epilepsy, unspecified, not intractable, without status epilepticus; J44.9 Chronic obstructive pulmonary disease, unspecified; G25.81 Restless legs syndrome; G25.0 Essential tremor; R47.81 Slurred speech; K21.9 Gastro-esophageal reflux disease without esophagitis; M54.5 Low back pain; G89.29 Other chronic pain; K59.00 Constipation, unspecified; K25.9 Gastric ulcer, unspecified as acute or chronic, without hemorrhage or perforation; Z86.79 Personal history of other diseases of the circulatory system; Z79.899 Other long term (current) drug therapy; Z88.8 Allergy status to other drugs, medicaments and biological substances; Z88.5 Allergy status to narcotic agent
CPT/HCPCS: 70450; 70551; 71045; 71275; 80048; 80076; 82550; 82553; 84443; 84484; 85025; 85610; 85730; 86850; 86900; 86901; 87631; 93005; 93041; 94760; 99285; G0378; Q9967

== ENCOUNTER → 2020-10-25 | Outpatient (CLI) | payer MEDICARE, OTHER ==
[~2020-10-25] MED LIST changes: +DIVA250T67 PO; +MELO7.5T35; +OMEP-218 PO
[2020-10-25 11:43] LABS: CREATININE FOR GFR 1.18 MG/DL (0.55-1.30); GLOMERULAR FILTRATION RATE 47.2 (>39)
== END ==
LOC: M LAB 10:39
PROVIDERS: ATTEND Nurse Practitioner Family
DX: N28.9 Disorder of kidney and ureter, unspecified (principal)

== ENCOUNTER → 2020-10-26 | Outpatient (CLI) | payer MEDICARE, OTHER ==
[~2020-10-26] MED LIST changes: +ISOVUE-370 76% 100ML VIAL As Ordered ONE
--- NOTE | 2020-10-28 09:16 | REP ---
INDICATION: History of renal lesion. COMPARISON: Comparison CT angiography of the chest September 25, 2020.. TECHNIQUE: Contrast dose: 100 ML of Isovue [address] technique: Helical scanning is acquired and overlapping 1.5 mm and contiguous 3 mm axial images are reformatted. In addition, maximum intensity projection and multiplanar re-formation images are generated in sagittal and coronal imaging projections. Pre contrast and dual phase post-contrast imaging is included. FINDINGS: Preliminary digital digital watch assembler radiograph is unremarkable. Normal bowel gas pattern. The lung bases are essentially clear. There is no evidence of pleural effusion or upper abdominal ascites. The liver and spleen are normal in size homogeneous in texture. Normal adrenal glands are seen bilaterally. There are multiple cortical cysts affecting both kidneys. None of these Perla demonstrate complex features or contrast enhancement. The largest is a peripheral cyst in the upper pole on the right measuring 2.9 cm in greatest diameter. No renal mass is seen. Kidneys enhance symmetrically. No hydronephrosis or calculus is observed. Delayed scan acquisition shows no filling defect in the upper tract collecting system on either side. There is no evidence of bladder mass lesion. There is left colonic diverticulosis without CT evidence of diverticulitis. No pelvic mass or adenopathy is seen. The uterus and appendix are surgically absent. IMPRESSION: Multiple cortical cysts of the kidneys, simple cysts. Post cholecystectomy, hysterectomy, and appendectomy. Left colonic diverticulosis without CT evidence of diverticulitis. <Electronically signed by Lucio Diaz > 10/28/20 0919
== END ==
LOC: M RAD 14:46
PROVIDERS: ATTEND Nurse Practitioner Family
DX: N28.9 Disorder of kidney and ureter, unspecified (principal); K57.30 Diverticulosis of large intestine without perforation or abscess without bleeding
CPT/HCPCS: 74178; Q9967

== ENCOUNTER → 2020-11-04 | Outpatient (CLI) | payer MEDICARE, OTHER ==
[~2020-11-04] MED LIST changes: -ISOVUE-370 76% 100ML VIAL As Ordered ONE
--- NOTE | 2020-11-04 13:55 | REP ---
INDICATION: PAIN IN LEFT KNEE. COMPARISON: None. TECHNIQUE: Three views of the right knee were obtained. FINDINGS: There is no evidence of fracture or dislocation. There are no joint space abnormalities. There is no knee joint effusion. The periarticular soft tissues are normal. IMPRESSION: Normal right knee. <Electronically signed by Ruben Betancur > 11/04/20 [id number]
--- NOTE | 2020-11-04 14:20 | REP ---
INDICATION: PAIN IN LEFT KNEE COMPARISON: Right knee series performed this same date. TECHNIQUE: There are three views. FINDINGS: Mineralization and joint spaces are normal. There is no effusion. There is no fracture or dislocation. There are no calcifications or foreign bodies. IMPRESSION: Essentially negative left knee. <Electronically signed by Doe Calderon > 11/04/20 [id number]
== END ==
LOC: M RAD 13:16
PROVIDERS: ATTEND Nurse Practitioner Family
DX: M25.561 Pain in right knee (principal); M25.562 Pain in left knee

== ENCOUNTER → 2020-12-14 | Outpatient (CLI) | payer MEDICARE, OTHER ==
--- NOTE | 2020-12-14 15:26 | REP ---
INDICATION: LT KNEE PAIN. COMPARISON: Radiographs 11/04/2020. TECHNIQUE: Multiple sequences obtained in the axial, coronal and sagittal planes. FINDINGS: Menisci: The medial meniscus appears significantly truncated which may be the result of prior partial meniscectomy. There does appear to be tearing of the anterior and posterior meniscal remnants. The lateral meniscus is intact.. Cruciate ligaments: Intact. Collateral ligaments: Intact. Extensor mechanism/patellar retinacula: Intact. Cartilage: There is moderate diffuse chondromalacia of the patella, medial femoral condyle and tibial plateau. There is mild chondromalacia of the lateral femoral condyle and tibial plateau. Bone marrow: There is mild marrow edema posteriorly in the medial tibial plateau and medial femoral condyle. Joint fluid: There is moderate joint effusion. Popliteal region: No cyst. IMPRESSION: Significant truncation of the anterior posterior horns of the medial meniscus may be due to a prior partial meniscectomy. There are tears of the anterior and posterior meniscal remnants. The lateral meniscus is intact. 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 There is mild subcortical marrow edema in the posterior aspect of the medial tibial plateau and femoral condyle. Moderate joint effusion. <Electronically signed by Doe Duke > 12/14/20 [id number]
== END ==
LOC: M PLAIMG 14:25
PROVIDERS: ATTEND Nurse Practitioner Family
DX: R93.7 Abnormal findings on diagnostic imaging of other parts of musculoskeletal system (principal); M25.562 Pain in left knee

== ENCOUNTER → 2021-04-22 | Outpatient (CLI) | payer MEDICARE, OTHER ==
[~2021-04-22] MED LIST changes: +OMEP-173; +OMEP-173 PO; -OMEP-218; -OMEP-218 PO
[2021-04-22 13:26] LABS: BASO % 0.3 % (0.0-1.0); EOS % 0.2 % (0.0-3.0); HEMATOCRIT 36.7 % (36.0-47.0); HEMOGLOBIN 11.9 g/dl (12.0-15.5); LYMPH # 2.8 10^3/uL (1.5-5.0); LYMPH % 45.6 % (24.0-44.0); MEAN CORPUSCULAR HEMOGLOBIN 32.4 pg (27.0-33.0); MEAN CORPUSCULAR HGB CONC 32.4 g/dl (32.0-36.5); MONO # 0.5 10^3/uL (0.0-0.8); MONO % 8.4 % (2.0-8.0); NEUTROPHILS # 2.8 10^3/uL (1.5-8.5); NEUTROPHILS % 45.2 % (36.0-66.0); PLATELET COUNT, AUTOMATED 243 10^3/uL (150-450); RED BLOOD COUNT 3.67 10^6/uL (4.00-5.40); WHITE BLOOD COUNT 6.1 10^3/uL (4.0-10.0)
[2021-04-22 13:53] LABS: ALBUMIN 3.2 GM/DL (3.2-5.2); BILIRUBIN,TOTAL 0.2 MG/DL (0.2-1.0); CALCIUM LEVEL 10.4 MG/DL (8.8-10.2); CREATININE FOR GFR 1.12 MG/DL (0.55-1.30); GLOMERULAR FILTRATION RATE 50.1 (>39); POTASSIUM SERUM 5.1 MEQ/L (3.5-5.1); TOTAL PROTEIN 6.4 GM/DL (6.4-8.2); VALPROIC ACID (DEPAKOTE) 65.8 UG/ML (50.0-100.0)
== END ==
LOC: M PLALAB 10:57
PROVIDERS: ATTEND Psychiatry & Neurology Neurology
DX: R56.9 Unspecified convulsions (principal)

== ENCOUNTER → 2021-08-19 | Outpatient (CLI) | payer MEDICARE, OTHER ==
[2021-08-19 17:40] LABS: BASO % 0.4 % (0.0-1.0); EOS % 0.1 % (0.0-3.0); HEMATOCRIT 37.5 % (36.0-47.0); HEMOGLOBIN 12.5 g/dl (12.0-15.5); LYMPH # 3.4 10^3/uL (1.5-5.0); LYMPH % 43.9 % (24.0-44.0); MEAN CORPUSCULAR HEMOGLOBIN 31.6 pg (27.0-33.0); MEAN CORPUSCULAR HGB CONC 33.3 g/dl (32.0-36.5); MEAN CORPUSCULAR VOLUME 94.7 fl (80.0-96.0); MONO # 0.6 10^3/uL (0.0-0.8); MONO % 7.3 % (2.0-8.0); NEUTROPHILS # 3.7 10^3/uL (1.5-8.5); NEUTROPHILS % 47.8 % (36.0-66.0); PLATELET COUNT, AUTOMATED 200 10^3/uL (150-450); RED BLOOD COUNT 3.96 10^6/uL (4.00-5.40); WHITE BLOOD COUNT 7.7 10^3/uL (4.0-10.0)
[2021-08-19 18:07] LABS: ALBUMIN 3.4 GM/DL (3.2-5.2); BILIRUBIN,TOTAL 0.2 MG/DL (0.2-1.0); CALCIUM LEVEL 10.4 MG/DL (8.8-10.2); CHOLESTEROL RISK RATIO 3.509 (<5); CREATININE FOR GFR 1.33 MG/DL (0.55-1.30); FREE T4 0.9 NG/DL (0.76-1.46); HEMOGLOBIN A1c 5.3 %; POTASSIUM SERUM 5.4 MEQ/L (3.5-5.1); THYROID STIMULATING HORMONE 1.36 uIU/ML (0.358-3.740); TOTAL PROTEIN 6.9 GM/DL (6.4-8.2); VALPROIC ACID (DEPAKOTE) 61.6 UG/ML (50.0-100.0)
[2021-08-19 18:20] LABS: TOTAL 25(OH) VITAMIN D 13.9 NG/ML (30.0-100.0)
== END ==
LOC: M PLALAB 15:15
PROVIDERS: ATTEND Nurse Practitioner Family
DX: R73.01 Impaired fasting glucose (principal); I10 Essential (primary) hypertension; D64.9 Anemia, unspecified; E78.00 Pure hypercholesterolemia, unspecified; G40.909 Epilepsy, unspecified, not intractable, without status epilepticus; R26.81 Unsteadiness on feet; E55.9 Vitamin D deficiency, unspecified; R53.83 Other fatigue; Z79.899 Other long term (current) drug therapy

== ENCOUNTER → 2021-09-28 | Outpatient (CLI) | payer MEDICARE, OTHER | LOC: M WHC 11:42 | PROVIDERS: ATTEND Nurse Practitioner Family | DX: Z12.31 Encounter for screening mammogram for malignant neoplasm of breast (principal); Z13.820 Encounter for screening for osteoporosis; M81.0 Age-related osteoporosis without current pathological fracture ==

== ENCOUNTER → 2021-11-28 | Outpatient (CLI) | payer MEDICARE, OTHER | LOC: M PLAIMG 14:07 | PROVIDERS: ATTEND Nurse Practitioner Family | DX: M25.572 Pain in left ankle and joints of left foot (principal); S99.922A Unspecified injury of left foot, initial encounter ==

== ENCOUNTER → 2021-12-14 | Outpatient (CLI) | payer MEDICARE, OTHER ==
[2021-12-14 15:53] LABS: BASO % 0.5 % (0.0-1.0); EOS % 0.2 % (0.0-3.0); HEMATOCRIT 35.8 % (36.0-47.0); LYMPH # 2.4 10^3/uL (1.5-5.0); LYMPH % 39.8 % (24.0-44.0); MEAN CORPUSCULAR HGB CONC 33.5 g/dl (32.0-36.5); MEAN CORPUSCULAR VOLUME 95.5 fl (80.0-96.0); MONO # 0.7 10^3/uL (0.0-0.8); MONO % 11.2 % (2.0-8.0); NEUTROPHILS # 2.9 10^3/uL (1.5-8.5); NEUTROPHILS % 47.5 % (36.0-66.0); PLATELET COUNT, AUTOMATED 238 10^3/uL (150-450); RED BLOOD COUNT 3.75 10^6/uL (4.00-5.40)
[2021-12-14 16:35] LABS: ALBUMIN 3.3 GM/DL (3.2-5.2); BILIRUBIN,TOTAL 0.2 MG/DL (0.2-1.0); CALCIUM LEVEL 10.8 MG/DL (8.8-10.2); CHOLESTEROL RISK RATIO 3.013 (<5); CREATININE FOR GFR 1.19 MG/DL (0.55-1.30); GLOMERULAR FILTRATION RATE 46.6 (>39); POTASSIUM SERUM 5.6 MEQ/L (3.5-5.1); TOTAL PROTEIN 6.9 GM/DL (6.4-8.2); VALPROIC ACID (DEPAKOTE) 55.1 UG/ML (50.0-100.0)
[2021-12-14 17:12] LABS: PTH INTACT 180.4 PG/ML (18.5-88.0); TOTAL 25(OH) VITAMIN D 51.5 NG/ML (30.0-100.0)
== END ==
LOC: M PLALAB 12:27
PROVIDERS: ATTEND Nurse Practitioner Family
DX: G40.909 Epilepsy, unspecified, not intractable, without status epilepticus (principal); E78.00 Pure hypercholesterolemia, unspecified

== ENCOUNTER → 2022-01-13 | Outpatient (CLI) | payer MEDICARE, OTHER | LOC: M RAD 10:43 | PROVIDERS: ATTEND Nurse Practitioner Family | DX: S92.502A Displaced unspecified fracture of left lesser toe(s), initial encounter for closed fracture (principal); W18.30XA Fall on same level, unspecified, initial encounter; Y92.009 Unspecified place in unspecified non-institutional (private) residence as the place of occurrence of the external cause ==

== ENCOUNTER → 2022-06-22 | Outpatient (CLI) | payer MEDICARE, OTHER ==
[2022-06-22 12:45] LABS: BASO % 0.2 % (0.0-1.0); HEMOGLOBIN 11.3 g/dl (12.0-15.5); LYMPH # 2.7 10^3/uL (1.5-5.0); LYMPH % 24.6 % (24.0-44.0); MEAN CORPUSCULAR HEMOGLOBIN 30.9 pg (27.0-33.0); MEAN CORPUSCULAR HGB CONC 32.3 g/dl (32.0-36.5); MEAN CORPUSCULAR VOLUME 95.6 fl (80.0-96.0); MONO # 0.9 10^3/uL (0.0-0.8); MONO % 8.1 % (2.0-8.0); NEUTROPHILS # 7.3 10^3/uL (1.5-8.5); NEUTROPHILS % 66.7 % (36.0-66.0); PLATELET COUNT, AUTOMATED 214 10^3/uL (150-450); RED BLOOD COUNT 3.66 10^6/uL (4.00-5.40); WHITE BLOOD COUNT 10.9 10^3/uL (4.0-10.0)
[2022-06-22 13:20] LABS: ALBUMIN 3.3 G/DL (3.2-5.2); BILIRUBIN,TOTAL 0.4 MG/DL (0.3-1.2); CALCIUM LEVEL 10.5 MG/DL (8.3-10.6); CHOLESTEROL RISK RATIO 4.29 (<5); CREATININE FOR GFR 1.17 MG/DL (0.55-1.30); FREE T4 1.21 NG/DL (0.89-1.76); GLOMERULAR FILTRATION RATE 47.4 (>32); HDL CHOLESTEROL 46.6 MG/DL (>40); LDL CHOLESTEROL 122.4 MG/DL (<100); MB/CK RELATIVE INDEX 3.38 (< OR =4); NON-HDL-C 153.4 MG/DL; POTASSIUM SERUM 4.7 MMOL/L (3.5-5.1); THYROID STIMULATING HORMONE 1.067 uIU/ML (0.55-4.78); TOTAL 25(OH) VITAMIN D 76.2 NG/ML (20.0-100.0); TOTAL PROTEIN 6.5 G/DL (5.7-8.2)
[2022-06-22 14:13] LABS: HEMOGLOBIN A1c 5.4 % (4.0-6.0)
== END ==
LOC: M RAD 10:42
PROVIDERS: ATTEND Nurse Practitioner Family
DX: M79.89 Other specified soft tissue disorders (principal); R06.02 Shortness of breath; E78.00 Pure hypercholesterolemia, unspecified

== ENCOUNTER → 2022-06-29 | Outpatient (CLI) | payer MEDICARE, OTHER | LOC: M RAD 14:32 | PROVIDERS: ATTEND Physician Assistant | DX: S70.02XA Contusion of left hip, initial encounter (principal); R22.42 Localized swelling, mass and lump, left lower limb; W18.30XA Fall on same level, unspecified, initial encounter; Y92.009 Unspecified place in unspecified non-institutional (private) residence as the place of occurrence of the external cause ==

== ENCOUNTER → 2022-07-07 | Outpatient (CLI) | payer MEDICARE, OTHER ==
[~2022-07-07] MED LIST changes: +ISOVUE-370 76% 100ML VIAL As Ordered ONE
== END ==
LOC: M RAD 15:17
PROVIDERS: ATTEND Nurse Practitioner Family
DX: R79.89 Other specified abnormal findings of blood chemistry (principal)
CPT/HCPCS: 71275; Q9967

== ENCOUNTER 2022-08-09 20:39 | Emergency (ER) | payer MEDICARE, OTHER ==
[~2022-08-09] VITALS: Ht 160 cm; Wt 100.0 kg
[~2022-08-09 20:39] MED LIST changes: -ISOVUE-370 76% 100ML VIAL As Ordered ONE
[2022-08-09 20:40] VITALS: BP 144/58
== END 2022-08-09 23:40 | disposition left against medical advice (07) ==
LOC: M ED 20:39
DX: S99.921A Unspecified injury of right foot, initial encounter (principal); X58.XXXA Exposure to other specified factors, initial encounter; Y92.89 Other specified places as the place of occurrence of the external cause; Y93.89 Activity, other specified; Y99.8 Other external cause status; Z53.21 Procedure and treatment not carried out due to patient leaving prior to being seen by health care provider

== ENCOUNTER → 2022-09-15 | Outpatient (CLI) | payer MEDICARE, OTHER | LOC: M PLAIMG 13:13 | PROVIDERS: ATTEND Physician Assistant | DX: S92.101A Unspecified fracture of right talus, initial encounter for closed fracture (principal); S92.001A Unspecified fracture of right calcaneus, initial encounter for closed fracture; M85.871 Other specified disorders of bone density and structure, right ankle and foot; M19.071 Primary osteoarthritis, right ankle and foot; X58.XXXA Exposure to other specified factors, initial encounter; Y92.9 Unspecified place or not applicable; Y93.9 Activity, unspecified; Y99.9 Unspecified external cause status ==

== ENCOUNTER 2022-10-25 08:15 | Inpatient (IN) | payer MEDICARE, OTHER ==
[~2022-10-25] VITALS: Ht 160 cm; Wt 95.6 kg
[2022-10-25] MEDS: MORPHINE 2 MG/ML 1ML VIAL IV PRN ×2 (09:01→20:33)
[2022-10-25 09:39] LABS: BASO % 0.4 % (0.0-1.0); EOS % 0.1 % (0.0-3.0); HEMATOCRIT 34.5 % (36.0-47.0); HEMOGLOBIN 11.2 g/dl (12.0-15.5); LYMPH # 2.8 10^3/uL (1.5-5.0); LYMPH % 39.9 % (24.0-44.0); MEAN CORPUSCULAR HEMOGLOBIN 30.6 pg (27.0-33.0); MEAN CORPUSCULAR HGB CONC 32.5 g/dl (32.0-36.5); MEAN CORPUSCULAR VOLUME 94.3 fl (80.0-96.0); MONO # 0.8 10^3/uL (0.0-0.8); MONO % 10.8 % (2.0-8.0); NEUTROPHILS # 3.4 10^3/uL (1.5-8.5); NEUTROPHILS % 48.2 % (36.0-66.0); PLATELET COUNT, AUTOMATED 167 10^3/uL (150-450); RED BLOOD COUNT 3.66 10^6/uL (4.00-5.40); WHITE BLOOD COUNT 7.1 10^3/uL (4.0-10.0)
[2022-10-25 09:41] LABS: BLOOD UREA NITROGEN 20 MG/DL (9-23); CALCIUM LEVEL 10.6 MG/DL (8.3-10.6); CARBON DIOXIDE LEVEL 33 MMOL/L (20-31); CHLORIDE LEVEL 104 MMOL/L (98-107); CK-MB VALUE MASS < 1.0 NG/ML (<3.6); CPK CREATINE PHOSPHOKINASE 26 U/L (34-145); CREATININE FOR GFR 1.01 MG/DL (0.55-1.30); GLOMERULAR FILTRATION RATE 56.1 (>32); GLUCOSE, FASTING 102 MG/DL (74-106); MB/CK RELATIVE INDEX 3.84 (< OR =4); POTASSIUM SERUM 4.4 MMOL/L (3.5-5.1); SODIUM LEVEL 142 MMOL/L (136-145)
[2022-10-25 09:42] LABS: INR 0.87
[2022-10-25 09:43] LABS: PARTIAL THROMBOPLASTIN TIME 27.7 SECONDS (24.8-34.2)
[2022-10-25 09:44] LABS: THYROID STIMULATING HORMONE 2.246 uIU/ML (0.55-4.78)
[2022-10-25 10:06] LABS: RSV AMPLIFICATION NEGATIVE (NEGATIVE)
[2022-10-25 10:58] LABS: CK-MB VALUE MASS < 1.0 NG/ML (<3.6)
[2022-10-25 11:07] LABS: CPK CREATINE PHOSPHOKINASE 24 U/L (34-145); MB/CK RELATIVE INDEX 4.16 (< OR =4)
[2022-10-25] MEDS ORDERED: MED REC IN PROGRESS XX SCH (15:40)
[2022-10-25] MEDS ORDERED: DIVALPROEX 250MG TAB PO ONE (16:00)
[2022-10-25] MEDS ORDERED: PRIMIDONE 50MG TAB PO ONE (16:00)
[2022-10-25] MEDS ORDERED: ATOR1TAB21 PO (16:12)
[2022-10-25] MEDS ORDERED: MECL-136 PO (16:12)
[2022-10-25] MEDS ORDERED: AMLO1TAB24 PO (16:12)
[2022-10-25] MEDS ORDERED: VITA1CAP25 PO (16:12)
[2022-10-25] MEDS ORDERED: MELA10TA2 PO (16:12)
[2022-10-25] MEDS ORDERED: ASPI81TA26 PO (16:12)
[2022-10-25] MEDS ORDERED: ALBU8.5H PO (16:12)
[2022-10-25] MEDS ORDERED: HOME MED LIST COMPLETE! XX SCH (16:35)
[2022-10-25] MEDS: ACETAMINOPHEN TAB 650MG DOSE (2X325MG) PO PRN (16:44)
[2022-10-25] MEDS ORDERED: ALBUTEROL 90 MCG/ACT 8GM HFA INHALER INH PRN (17:45)
[2022-10-25] MEDS ORDERED: MECLIZINE 12.5 MG TAB PO PRN (17:45)
[2022-10-25 19:30] VITALS: BP 149/63; TEMP 97; O2SAT 91
[2022-10-25] MEDS ORDERED: COMBIVENT RESPIMAT 100-20MCG INHALER 4GM INH SCH (20:00)
[2022-10-25] MEDS: ATORVASTATIN 20 MG TAB PO SCH (20:31)
[2022-10-25] MEDS: DIVALPROEX 250MG TAB PO SCH (20:31)
[2022-10-25] MEDS: GABAPENTIN 100 MG CAP PO SCH (20:32)
[2022-10-25] MEDS: RAMELTEON 8 MG TAB (ROZEREM) PO SCH (20:32)
[2022-10-25] MEDS: COMBIVENT RESPIMAT 100-20MCG INHALER 4GM INH SCH (20:58)
[2022-10-25] MEDS ORDERED: DIVALPROEX 250MG *ER* TAB PO SCH (21:00)
[2022-10-26] MEDS: ACETAMINOPHEN TAB 650MG DOSE (2X325MG) PO PRN ×2 (04:36→20:59)
[2022-10-26 04:46] VITALS: BP 166/65; TEMP 97.3; O2SAT 94
[2022-10-26 04:47] VITALS: BP 144/62
[2022-10-26 06:52] VITALS: O2SAT 95
[2022-10-26 07:33] LABS: HEMATOCRIT 32.4 % (36.0-47.0); HEMOGLOBIN 10.5 g/dl (12.0-15.5); MEAN CORPUSCULAR HEMOGLOBIN 30.4 pg (27.0-33.0); MEAN CORPUSCULAR HGB CONC 32.4 g/dl (32.0-36.5); MEAN CORPUSCULAR VOLUME 93.9 fl (80.0-96.0); PLATELET COUNT, AUTOMATED 160 10^3/uL (150-450); RED BLOOD COUNT 3.45 10^6/uL (4.00-5.40)
[2022-10-26] MEDS: COMBIVENT RESPIMAT 100-20MCG INHALER 4GM INH SCH ×2 (07:53→21:36)
[2022-10-26] MEDS ORDERED: cefTRIAXone SOD 1 GM in D5W MINI-BAG PLUS 50 ML IV SCH (08:00)
[2022-10-26 08:09] LABS: ALBUMIN 2.6 G/DL (3.2-5.2); ALKALINE PHOSPHATASE 72 U/L (46-116); ALT/SGPT < 9 U/L (7.0-40); AST/SGOT < 8 U/L (<34); BILIRUBIN,TOTAL 0.2 MG/DL (0.3-1.2); BLOOD UREA NITROGEN 20 MG/DL (9-23); CALCIUM LEVEL 10.3 MG/DL (8.3-10.6); CARBON DIOXIDE LEVEL 32 MMOL/L (20-31); CHLORIDE LEVEL 106 MMOL/L (98-107); CREATININE FOR GFR 1.14 MG/DL (0.55-1.30); GLOMERULAR FILTRATION RATE 48.8 (>32); GLUCOSE, FASTING 109 MG/DL (74-106); POTASSIUM SERUM 5.3 MMOL/L (3.5-5.1); SODIUM LEVEL 141 MMOL/L (136-145); TOTAL PROTEIN 5.6 G/DL (5.7-8.2)
[2022-10-26] MEDS ORDERED: amLODIPine 5 MG TAB PO SCH (09:00)
[2022-10-26] MEDS: ASPIRIN 81MG ENTERIC TABLET PO SCH (09:26)
[2022-10-26] MEDS: DIVALPROEX 250MG TAB PO SCH ×2 (09:26→20:50)
[2022-10-26] MEDS: OMEPRAZOLE 20MG CAP PO SCH (09:26)
[2022-10-26] MEDS: PRIMIDONE 50MG TAB PO SCH ×2 (09:26→20:50)
[2022-10-26] MEDS: ENOXAPARIN 40MG/0.4ML SYRINGE (J1650 PER 10MG) SC SCH (09:47)
[2022-10-26 14:00] VITALS: BP 124/63; TEMP 97.3; O2SAT 92
[2022-10-26 20:33] VITALS: BP 122/63; TEMP 97.3; O2SAT 94
[2022-10-26] MEDS: GABAPENTIN 100 MG CAP PO SCH (20:50)
[2022-10-26] MEDS: RAMELTEON 8 MG TAB (ROZEREM) PO SCH (20:50)
[2022-10-26] MEDS: ATORVASTATIN 20 MG TAB PO SCH (20:50)
[2022-10-26 23:45] VITALS: O2SAT 83
[2022-10-27 01:15] VITALS: O2SAT 95
[2022-10-27 06:04] LABS: HEMATOCRIT 30.8 % (36.0-47.0); HEMOGLOBIN 10.1 g/dl (12.0-15.5); MEAN CORPUSCULAR HEMOGLOBIN 30.3 pg (27.0-33.0); MEAN CORPUSCULAR HGB CONC 32.8 g/dl (32.0-36.5); MEAN CORPUSCULAR VOLUME 92.5 fl (80.0-96.0); PLATELET COUNT, AUTOMATED 170 10^3/uL (150-450); RED BLOOD COUNT 3.33 10^6/uL (4.00-5.40); WHITE BLOOD COUNT 5.2 10^3/uL (4.0-10.0)
[2022-10-27 06:29] LABS: ALBUMIN 2.8 G/DL (3.2-5.2); ALKALINE PHOSPHATASE 63 U/L (46-116); ALT/SGPT < 9 U/L (7.0-40); AST/SGOT < 8 U/L (<34); BILIRUBIN,TOTAL 0.2 MG/DL (0.3-1.2); BLOOD UREA NITROGEN 18 MG/DL (9-23); CALCIUM LEVEL 10.5 MG/DL (8.3-10.6); CARBON DIOXIDE LEVEL 31 MMOL/L (20-31); CHLORIDE LEVEL 106 MMOL/L (98-107); CREATININE FOR GFR 1.02 MG/DL (0.55-1.30); GLOMERULAR FILTRATION RATE 55.5 (>32); GLUCOSE, FASTING 103 MG/DL (74-106); POTASSIUM SERUM 4.4 MMOL/L (3.5-5.1); SODIUM LEVEL 141 MMOL/L (136-145); TOTAL PROTEIN 5.7 G/DL (5.7-8.2)
[2022-10-27] MEDS: COMBIVENT RESPIMAT 100-20MCG INHALER 4GM INH SCH ×2 (07:51→19:54)
[2022-10-27] MEDS: OMEPRAZOLE 20MG CAP PO SCH (08:43)
[2022-10-27] MEDS: ASPIRIN 81MG ENTERIC TABLET PO SCH (08:43)
[2022-10-27] MEDS: DIVALPROEX 250MG TAB PO SCH ×2 (08:43→21:18)
[2022-10-27] MEDS: PRIMIDONE 50MG TAB PO SCH ×2 (08:43→21:18)
[2022-10-27] MEDS: CEPHALEXIN 500 MG CAP PO SCH ×4 (08:44→21:18)
[2022-10-27] MEDS: ENOXAPARIN 40MG/0.4ML SYRINGE (J1650 PER 10MG) SC SCH (08:44)
[2022-10-27] MEDS ORDERED: ACET1TAB55 PO (10:23)
[2022-10-27] MEDS ORDERED: CEPH500C PO (10:23)
[2022-10-27] MEDS ORDERED: AMLO1TAB25 PO (10:23)
[2022-10-27 14:30] VITALS: BP 126/48; TEMP 97.3; O2SAT 99
[2022-10-27 21:00] VITALS: O2SAT 93
[2022-10-27] MEDS: GABAPENTIN 100 MG CAP PO SCH (21:18)
[2022-10-27] MEDS: ATORVASTATIN 20 MG TAB PO SCH (21:18)
[2022-10-27] MEDS: RAMELTEON 8 MG TAB (ROZEREM) PO SCH (21:18)
[2022-10-27 22:00] VITALS: BP 147/55; TEMP 97.3; O2SAT 91
[2022-10-28 06:00] VITALS: BP 150/55; TEMP 97.7; O2SAT 92
[2022-10-28 06:04] LABS: HEMATOCRIT 31.7 % (36.0-47.0); HEMOGLOBIN 10.2 g/dl (12.0-15.5); MEAN CORPUSCULAR HEMOGLOBIN 30.4 pg (27.0-33.0); MEAN CORPUSCULAR HGB CONC 32.2 g/dl (32.0-36.5); MEAN CORPUSCULAR VOLUME 94.3 fl (80.0-96.0); PLATELET COUNT, AUTOMATED 191 10^3/uL (150-450); RED BLOOD COUNT 3.36 10^6/uL (4.00-5.40); WHITE BLOOD COUNT 5.3 10^3/uL (4.0-10.0)
[2022-10-28 06:31] LABS: ALBUMIN 2.6 G/DL (3.2-5.2); ALKALINE PHOSPHATASE 63 U/L (46-116); ALT/SGPT < 9 U/L (7.0-40); AST/SGOT 9 U/L (<34); BILIRUBIN,TOTAL 0.2 MG/DL (0.3-1.2); BLOOD UREA NITROGEN 20 MG/DL (9-23); CALCIUM LEVEL 10.6 MG/DL (8.3-10.6); CARBON DIOXIDE LEVEL 32 MMOL/L (20-31); CHLORIDE LEVEL 106 MMOL/L (98-107); CREATININE FOR GFR 0.99 MG/DL (0.55-1.30); GLOMERULAR FILTRATION RATE 57.5 (>32); GLUCOSE, FASTING 91 MG/DL (74-106); POTASSIUM SERUM 4.3 MMOL/L (3.5-5.1); SODIUM LEVEL 144 MMOL/L (136-145); TOTAL PROTEIN 5.6 G/DL (5.7-8.2)
[2022-10-28] MEDS: COMBIVENT RESPIMAT 100-20MCG INHALER 4GM INH SCH (07:37)
[2022-10-28] MEDS ORDERED: ACET1TAB55 PO (08:38)
[2022-10-28] MEDS ORDERED: AMLO1TAB25 PO (08:38)
[2022-10-28] MEDS ORDERED: CEPH500C PO (08:38)
[2022-10-28] MEDS: OMEPRAZOLE 20MG CAP PO SCH (09:18)
[2022-10-28] MEDS: CEPHALEXIN 500 MG CAP PO SCH (09:18)
[2022-10-28] MEDS: DIVALPROEX 250MG TAB PO SCH (09:18)
[2022-10-28] MEDS: ASPIRIN 81MG ENTERIC TABLET PO SCH (09:18)
[2022-10-28] MEDS: PRIMIDONE 50MG TAB PO SCH (09:18)
[2022-10-28 09:19] VITALS: BP 148/56
[2022-10-28] MEDS: ENOXAPARIN 40MG/0.4ML SYRINGE (J1650 PER 10MG) SC SCH (09:19)
== END 2022-10-28 10:38 | disposition home health service (06) | DRG 690 ==
LOC: EDBD 08:15 → M ED 08:15 → M ED INP 08:16 → OBSVTOIN 08:16 → ENRESERV 15:20 → M MSPAV 16:01
PROVIDERS: ADMIT Internal Medicine; ATTEND Internal Medicine
DX: N39.0 Urinary tract infection, site not specified (principal); R29.6 Repeated falls; R53.1 Weakness; B96.1 Klebsiella pneumoniae [K. pneumoniae] as the cause of diseases classified elsewhere; G40.909 Epilepsy, unspecified, not intractable, without status epilepticus; M19.90 Unspecified osteoarthritis, unspecified site; I10 Essential (primary) hypertension; E78.5 Hyperlipidemia, unspecified; J44.9 Chronic obstructive pulmonary disease, unspecified; K21.9 Gastro-esophageal reflux disease without esophagitis; G25.81 Restless legs syndrome; R53.81 Other malaise; M79.605 Pain in left leg; E87.5 Hyperkalemia; R42 Dizziness and giddiness; H91.93 Unspecified hearing loss, bilateral; Z66 Do not resuscitate; Z98.41 Cataract extraction status, right eye; Z98.42 Cataract extraction status, left eye; Z90.49 Acquired absence of other specified parts of digestive tract; Z87.891 Personal history of nicotine dependence; M47.817 Spondylosis without myelopathy or radiculopathy, lumbosacral region; G89.29 Other chronic pain; Z97.4 Presence of external hearing-aid; Z79.899 Other long term (current) drug therapy; Z88.8 Allergy status to other drugs, medicaments and biological substances; Z74.1 Need for assistance with personal care

== ENCOUNTER 2022-11-18 23:50 | Emergency (ER) | payer MEDICARE, OTHER ==
[~2022-11-18] VITALS: Ht 157.5 cm; Wt 95.0 kg
[~2022-11-18 23:50] MED LIST changes: +ACET1TAB55 PO; +ALBU8.5H PO; +AMLO1TAB24 PO; +AMLO1TAB25 PO; +ASPI81TA26 PO; +ATOR1TAB21 PO; +CEPH500C PO; +MECL-136 PO; +MELA10TA2 PO; +VITA1CAP25 PO
[2022-11-19] MEDS ORDERED: traMADol 50 MG TAB PO ONE (01:20)
[2022-11-19 02:50] VITALS: BP 163/73; TEMP 97.1; O2SAT 92
[2022-11-19] MEDS ORDERED: ACETAMINOPHEN TAB 650MG DOSE (2X325MG) PO ONE (02:50)
== END 2022-11-19 03:24 | disposition home or self-care (01) ==
LOC: M ED 23:50
DX: S93.401A Sprain of unspecified ligament of right ankle, initial encounter (principal); S93.601A Unspecified sprain of right foot, initial encounter; W19.XXXA Unspecified fall, initial encounter; J44.9 Chronic obstructive pulmonary disease, unspecified; K21.9 Gastro-esophageal reflux disease without esophagitis; M54.50 Low back pain, unspecified; I10 Essential (primary) hypertension; Z79.82 Long term (current) use of aspirin; Z88.8 Allergy status to other drugs, medicaments and biological substances; Z79.52 Long term (current) use of systemic steroids; Z79.810 Long term (current) use of selective estrogen receptor modulators (SERMs); Z79.899 Other long term (current) drug therapy

== ENCOUNTER → 2022-12-12 | Outpatient (CLI) | payer MEDICARE, OTHER ==
[2022-12-12 16:05] LABS: APPEARANCE, URINE HAZY (CLEAR); BACTERIA, URINE AUTO 1+ (NEGATIVE); BILIRUBIN, URINE AUTO NEGATIVE (NEGATIVE); BLOOD, URINE BLOOD NEGATIVE (NEGATIVE); COLOR, URINE YELLOW (YELLOW); GLUCOSE, URINE (UA) AUTO NEGATIVE (NEGATIVE); KETONE, URINE AUTO NEGATIVE (NEGATIVE); LEUKOCYTE ESTERASE, URINE AUTO TRACE (NEGATIVE); MUCUS, URINE SMALL (NEGATIVE); NITRITE, URINE AUTO NEGATIVE (NEGATIVE); PROTEIN, URINE AUTO NEGATIVE (NEGATIVE); RBC, URINE AUTO 2 /HPF (0-3); SPECIFIC GRAVITY URINE AUTO 1.015 (1.002-1.035); SQUAMOUS EPITHELIAL CELL UR AU 18 /HPF (0-6); UROBILINOGEN, URINE AUTO 0.2 mg/dL (0.0-2.0); WBC, URINE AUTO 7 /HPF (0-3)
[2022-12-12 18:21] LABS: BASO % 0.4 % (0.0-1.0); EOS % 0.1 % (0.0-3.0); HEMATOCRIT 36.3 % (36.0-47.0); HEMOGLOBIN 11.6 g/dl (12.0-15.5); LYMPH # 4.1 10^3/uL (1.5-5.0); LYMPH % 42.2 % (24.0-44.0); MEAN CORPUSCULAR HEMOGLOBIN 30.9 pg (27.0-33.0); MEAN CORPUSCULAR VOLUME 96.8 fl (80.0-96.0); MONO # 0.7 10^3/uL (0.0-0.8); MONO % 6.9 % (2.0-8.0); NEUTROPHILS # 4.8 10^3/uL (1.5-8.5); NEUTROPHILS % 49.5 % (36.0-66.0); PLATELET COUNT, AUTOMATED 247 10^3/uL (150-450); RED BLOOD COUNT 3.75 10^6/uL (4.00-5.40); WHITE BLOOD COUNT 9.7 10^3/uL (4.0-10.0)
[2022-12-12 18:48] LABS: ALBUMIN 3.4 G/DL (3.2-5.2); ALKALINE PHOSPHATASE 98 U/L (46-116); ALT/SGPT < 9 U/L (7.0-40); AST/SGOT 13 U/L (<34); BILIRUBIN,TOTAL 0.2 MG/DL (0.3-1.2); BLOOD UREA NITROGEN 25 MG/DL (9-23); CARBON DIOXIDE LEVEL 29 MMOL/L (20-31); CHLORIDE LEVEL 105 MMOL/L (98-107); CHOLESTEROL LEVEL 157 MG/DL (<200); CHOLESTEROL RISK RATIO 3.29 (<5); CREATININE FOR GFR 1.36 MG/DL (0.55-1.30); GLOMERULAR FILTRATION RATE 39.8 (>32); GLUCOSE, FASTING 83 MG/DL (74-106); HDL CHOLESTEROL 47.7 MG/DL (>40); LDL CHOLESTEROL 81.7 MG/DL (<100); NON-HDL-C 109.3 MG/DL; POTASSIUM SERUM 5.4 MMOL/L (3.5-5.1); SODIUM LEVEL 143 MMOL/L (136-145); TOTAL PROTEIN 6.8 G/DL (5.7-8.2); TRIGLYCERIDES LEVEL 138 MG/DL (<150)
[2022-12-12 18:50] LABS: THYROID STIMULATING HORMONE 1.097 uIU/ML (0.55-4.78); TOTAL 25(OH) VITAMIN D 66.2 NG/ML (20.0-100.0)
[2022-12-12 18:52] LABS: FREE T4 1.14 NG/DL (0.89-1.76); VITAMIN B12 LEVEL 490 PG/ML (211-911)
[2022-12-12 19:24] LABS: HEMOGLOBIN A1c 6.3 % (4.0-6.0)
== END ==
LOC: M PLALAB 15:07
PROVIDERS: ATTEND Nurse Practitioner Family
DX: M20.11 Hallux valgus (acquired), right foot (principal); M19.071 Primary osteoarthritis, right ankle and foot; M25.471 Effusion, right ankle; N18.31 Chronic kidney disease, stage 3a; M79.89 Other specified soft tissue disorders; M25.571 Pain in right ankle and joints of right foot; R73.01 Impaired fasting glucose; D64.9 Anemia, unspecified; E78.00 Pure hypercholesterolemia, unspecified; N39.0 Urinary tract infection, site not specified; E55.9 Vitamin D deficiency, unspecified; R53.83 Other fatigue

== ENCOUNTER 2023-02-15 10:55 | Observation (INO) | payer MEDICARE, OTHER ==
[~2023-02-15] VITALS: Ht 160 cm; Wt 101.0 kg
[2023-02-15] MEDS ORDERED: ACETAMINOPHEN 325 MG TAB PO ONE (12:15)
[2023-02-15] MEDS: MORPHINE 2 MG/ML 1ML VIAL IV PRN ×2 (12:58→14:39)
[2023-02-15 13:08] LABS: BASO % 0.1 % (0.0-1.0); HEMATOCRIT 31.7 % (36.0-47.0); HEMOGLOBIN 10.3 g/dl (12.0-15.5); LYMPH # 3.1 10^3/uL (1.5-5.0); LYMPH % 38.8 % (24.0-44.0); MEAN CORPUSCULAR HEMOGLOBIN 30.6 pg (27.0-33.0); MEAN CORPUSCULAR HGB CONC 32.5 g/dl (32.0-36.5); MEAN CORPUSCULAR VOLUME 94.1 fl (80.0-96.0); MONO # 0.6 10^3/uL (0.0-0.8); MONO % 7.2 % (2.0-8.0); NEUTROPHILS # 4.3 10^3/uL (1.5-8.5); NEUTROPHILS % 53.5 % (36.0-66.0); PLATELET COUNT, AUTOMATED 200 10^3/uL (150-450); RED BLOOD COUNT 3.37 10^6/uL (4.00-5.40); WHITE BLOOD COUNT 8.1 10^3/uL (4.0-10.0)
[2023-02-15 13:21] LABS: INR 0.97; PROTHROMBIN TIME 12.6 SECONDS (12.5-14.5)
[2023-02-15 13:22] LABS: PARTIAL THROMBOPLASTIN TIME 28.8 SECONDS (24.8-34.2)
[2023-02-15 13:36] LABS: VALPROIC ACID (DEPAKOTE) 64.4 UG/ML (50.0-100.0)
[2023-02-15 13:37] LABS: AMYLASE 117 U/L (30-118)
[2023-02-15 13:38] LABS: ALBUMIN 2.9 G/DL (3.2-5.2); ALKALINE PHOSPHATASE 101 U/L (46-116); ALT/SGPT 11 U/L (7.0-40); AST/SGOT 12 U/L (<34); BILIRUBIN,DIRECT < 0.1 MG/DL (<0.4); BILIRUBIN,TOTAL 0.2 MG/DL (0.3-1.2); BLOOD UREA NITROGEN 22 MG/DL (9-23); CALCIUM LEVEL 10.3 MG/DL (8.3-10.6); CARBON DIOXIDE LEVEL 33 MMOL/L (20-31); CHLORIDE LEVEL 102 MMOL/L (98-107); CREATININE FOR GFR 1.09 MG/DL (0.55-1.30); GLOMERULAR FILTRATION RATE 51.4 (>32); GLUCOSE, FASTING 100 MG/DL (74-106); POTASSIUM SERUM 4.7 MMOL/L (3.5-5.1); SODIUM LEVEL 138 MMOL/L (136-145); TOTAL PROTEIN 6.2 G/DL (5.7-8.2)
[2023-02-15 14:11] LABS: RSV AMPLIFICATION NEGATIVE (NEGATIVE)
[2023-02-15] MEDS ORDERED: MED REC IN PROGRESS XX SCH (16:30)
[2023-02-15] MEDS ORDERED: oxyCODONE 5MG TAB PO PRN (16:45)
[2023-02-15] MEDS ORDERED: ACETAMINOPHEN TAB 650MG DOSE (2X325MG) PO PRN (16:45)
[2023-02-15] MEDS ORDERED: AMIT25TA19 PO (17:29)
[2023-02-15] MEDS ORDERED: MELA1TAB9 PO (17:29)
[2023-02-15] MEDS ORDERED: SENN-85 PO (17:29)
[2023-02-15] MEDS ORDERED: LOPE2TAB12 PO (17:29)
[2023-02-15] MEDS ORDERED: DICL50TAB PO (17:29)
[2023-02-15] MEDS ORDERED: AMLO1TAB25 PO (17:29)
[2023-02-15] MEDS ORDERED: HOME MED LIST COMPLETE! XX SCH (17:30)
[2023-02-15] MEDS ORDERED: ALBUTEROL 90 MCG/ACT 8GM HFA INHALER INH PRN (18:10)
[2023-02-15] MEDS: COMBIVENT RESPIMAT 100-20MCG INHALER 4GM INH SCH (19:12)
[2023-02-15] MEDS ORDERED: NS 1,000 ML IV SCH (20:55)
[2023-02-15 21:00] VITALS: BP 118/90; TEMP 97.4; O2SAT 94
[2023-02-15] MEDS: AMITRIPTYLINE 25MG TABLET PO SCH ×2 (21:00→21:53)
[2023-02-15] MEDS ORDERED: ATORVASTATIN 20 MG TAB PO SCH (21:00)
[2023-02-15] MEDS ORDERED: GABAPENTIN 100 MG CAP PO SCH (21:00)
[2023-02-15] MEDS: HEPARIN SOD (PORCINE) 5000UNITS/ML 1ML VIAL/SYRINGE SQ SCH (21:53)
[2023-02-15] MEDS: PERCOCET 5MG/325MG TAB PO PRN (22:11)
[2023-02-15] MEDS: DIVALPROEX 250MG TAB PO SCH (22:12)
[2023-02-15] MEDS: PRIMIDONE 50MG TAB PO SCH (22:12)
[2023-02-16] MEDS: HEPARIN SOD (PORCINE) 5000UNITS/ML 1ML VIAL/SYRINGE SQ SCH ×2 (05:55→14:21)
[2023-02-16] MEDS: PERCOCET 5MG/325MG TAB PO PRN ×2 (05:58→12:18)
[2023-02-16 06:04] VITALS: BP 129/60; TEMP 96.8; O2SAT 97
[2023-02-16 06:05] LABS: BASO % 0.4 % (0.0-1.0); HEMOGLOBIN 10.4 g/dl (12.0-15.5); LYMPH # 2.3 10^3/uL (1.5-5.0); LYMPH % 42.6 % (24.0-44.0); MEAN CORPUSCULAR HEMOGLOBIN 30.3 pg (27.0-33.0); MEAN CORPUSCULAR HGB CONC 32.5 g/dl (32.0-36.5); MEAN CORPUSCULAR VOLUME 93.3 fl (80.0-96.0); MONO # 0.4 10^3/uL (0.0-0.8); MONO % 7.7 % (2.0-8.0); NEUTROPHILS # 2.6 10^3/uL (1.5-8.5); NEUTROPHILS % 48.9 % (36.0-66.0); PLATELET COUNT, AUTOMATED 198 10^3/uL (150-450); RED BLOOD COUNT 3.43 10^6/uL (4.00-5.40); WHITE BLOOD COUNT 5.3 10^3/uL (4.0-10.0)
[2023-02-16 06:36] LABS: ALBUMIN 2.7 G/DL (3.2-5.2); BILIRUBIN,TOTAL 0.2 MG/DL (0.3-1.2); CALCIUM LEVEL 10.1 MG/DL (8.3-10.6); CREATININE FOR GFR 1.08 MG/DL (0.55-1.30); MAGNESIUM LEVEL 1.8 MG/DL (1.8-2.4); POTASSIUM SERUM 4.5 MMOL/L (3.5-5.1)
[2023-02-16] MEDS: COMBIVENT RESPIMAT 100-20MCG INHALER 4GM INH SCH (07:29)
[2023-02-16] MEDS ORDERED: OMEPRAZOLE 20MG CAP PO SCH (09:00)
[2023-02-16] MEDS ORDERED: ASPIRIN 81MG ENTERIC TABLET PO SCH (09:00)
[2023-02-16] MEDS: DIVALPROEX 250MG TAB PO SCH (09:49)
[2023-02-16] MEDS: PRIMIDONE 50MG TAB PO SCH (09:50)
[2023-02-16 09:51] VITALS: BP 167/69
[2023-02-16] MEDS ORDERED: PERCOCET PO (12:44)
[2023-02-16] MEDS ORDERED: HEPA500023 SQ (12:44)
[2023-02-16 14:00] VITALS: BP 160/65; TEMP 97.6; O2SAT 96
[2023-02-16] MEDS ORDERED: FLUZONE HIGH DOSE(65YR UP)QUAD/PF 240MCG/0.7ML SYRINGE IM.IMMUN ONE (16:00)
== END 2023-02-16 14:30 ==
LOC: M ED 10:55 → EDSEX 10:55 → EDBD 10:55 → M ED INP 16:34 → INTOOBSV 16:34 → M MS4PR 20:35
PROVIDERS: ADMIT Internal Medicine; ATTEND Internal Medicine
DX: S82.832A Other fracture of upper and lower end of left fibula, initial encounter for closed fracture (principal); W18.30XA Fall on same level, unspecified, initial encounter; Y92.092 Bedroom in other non-institutional residence as the place of occurrence of the external cause; Y93.89 Activity, other specified; Z91.81 History of falling; R54 Age-related physical debility; Z74.1 Need for assistance with personal care; G40.909 Epilepsy, unspecified, not intractable, without status epilepticus; J44.9 Chronic obstructive pulmonary disease, unspecified; R42 Dizziness and giddiness; M19.90 Unspecified osteoarthritis, unspecified site; K21.9 Gastro-esophageal reflux disease without esophagitis; I10 Essential (primary) hypertension; E78.5 Hyperlipidemia, unspecified; G25.81 Restless legs syndrome; Z88.8 Allergy status to other drugs, medicaments and biological substances; Z79.899 Other long term (current) drug therapy; Z79.82 Long term (current) use of aspirin

== ENCOUNTER 2023-02-16 12:44 | Inpatient (IN) | payer MEDICARE, OTHER ==
[~2023-02-16] VITALS: Ht 160 cm; Wt 101.3 kg
[~2023-02-16 12:44] MED LIST changes: +AMIT25TA19 PO; +DICL50TAB PO; +HEPA500023 SQ; +LOPE2TAB12 PO; +MELA1TAB9 PO; +PERCOCET PO; +SENN-85 PO
[2023-02-16] MEDS ORDERED: ALBUTEROL 90 MCG/ACT 8GM HFA INHALER INH PRN (13:35)
[2023-02-16 14:33] VITALS: BP 129/60; TEMP 96.8; O2SAT 97
[2023-02-16] MEDS: PERCOCET 5MG/325MG TAB PO PRN ×2 (17:06→21:27)
[2023-02-16 19:42] VITALS: BP 140/63; TEMP 97.6; O2SAT 94
[2023-02-16] MEDS: COMBIVENT RESPIMAT 100-20MCG INHALER 4GM INH SCH (19:49)
[2023-02-16] MEDS: AMITRIPTYLINE 25MG TABLET PO SCH (21:24)
[2023-02-16] MEDS: PRIMIDONE 50MG TAB PO SCH (21:24)
[2023-02-16] MEDS: RAMELTEON 8 MG TAB (ROZEREM) PO SCH (21:24)
[2023-02-16] MEDS: DIVALPROEX 250MG TAB PO SCH (21:25)
[2023-02-16] MEDS: ATORVASTATIN 20 MG TAB PO SCH (21:25)
[2023-02-16] MEDS: GABAPENTIN 100 MG CAP PO SCH (21:28)
[2023-02-16] MEDS: HEPARIN SOD (PORCINE) 5000UNITS/ML 1ML VIAL/SYRINGE SQ SCH (21:32)
[2023-02-17 05:30] VITALS: BP 131/58; TEMP 98.4; O2SAT 96
[2023-02-17] MEDS: HEPARIN SOD (PORCINE) 5000UNITS/ML 1ML VIAL/SYRINGE SQ SCH ×3 (05:38→20:10)
[2023-02-17 06:40] LABS: BASO % 0.2 % (0.0-1.0); HEMATOCRIT 32.4 % (36.0-47.0); HEMOGLOBIN 10.6 g/dl (12.0-15.5); LYMPH # 2.3 10^3/uL (1.5-5.0); LYMPH % 25.2 % (24.0-44.0); MEAN CORPUSCULAR HEMOGLOBIN 30.6 pg (27.0-33.0); MEAN CORPUSCULAR HGB CONC 32.7 g/dl (32.0-36.5); MEAN CORPUSCULAR VOLUME 93.6 fl (80.0-96.0); MONO # 0.9 10^3/uL (0.0-0.8); MONO % 9.8 % (2.0-8.0); NEUTROPHILS # 5.8 10^3/uL (1.5-8.5); NEUTROPHILS % 64.7 % (36.0-66.0); PLATELET COUNT, AUTOMATED 203 10^3/uL (150-450); RED BLOOD COUNT 3.46 10^6/uL (4.00-5.40)
[2023-02-17 07:03] LABS: CALCIUM LEVEL 9.9 MG/DL (8.3-10.6); CREATININE FOR GFR 1.37 MG/DL (0.55-1.30); GLOMERULAR FILTRATION RATE 39.5 (>32); POTASSIUM SERUM 4.9 MMOL/L (3.5-5.1)
[2023-02-17] MEDS ORDERED: NS 1,000 ML IV SCH (07:15)
[2023-02-17] MEDS: DIVALPROEX 250MG TAB PO SCH ×2 (07:32→20:11)
[2023-02-17] MEDS: ASPIRIN 81MG ENTERIC TABLET PO SCH (07:32)
[2023-02-17] MEDS: OMEPRAZOLE 20MG CAP PO SCH (07:32)
[2023-02-17] MEDS: PRIMIDONE 50MG TAB PO SCH ×2 (07:32→20:11)
[2023-02-17] MEDS: COMBIVENT RESPIMAT 100-20MCG INHALER 4GM INH SCH ×2 (07:54→19:51)
[2023-02-17 08:20] VITALS: O2SAT 96
[2023-02-17] MEDS ORDERED: FLUZONE HIGH DOSE(65YR UP)QUAD/PF 240MCG/0.7ML SYRINGE IM.IMMUN ONE (09:00)
[2023-02-17 14:00] VITALS: BP 131/58; TEMP 97.8; O2SAT 97
[2023-02-17 19:27] VITALS: BP 143/60; TEMP 97.7; O2SAT 92
[2023-02-17] MEDS: AMITRIPTYLINE 25MG TABLET PO SCH (20:11)
[2023-02-17] MEDS: RAMELTEON 8 MG TAB (ROZEREM) PO SCH (20:11)
[2023-02-17] MEDS: GABAPENTIN 100 MG CAP PO SCH (20:11)
[2023-02-17] MEDS: ATORVASTATIN 20 MG TAB PO SCH (20:11)
[2023-02-17] MEDS: PERCOCET 5MG/325MG TAB PO PRN (20:24)
[2023-02-18 05:04] VITALS: BP 109/52; TEMP 98.6; O2SAT 94
[2023-02-18] MEDS: HEPARIN SOD (PORCINE) 5000UNITS/ML 1ML VIAL/SYRINGE SQ SCH ×3 (05:48→22:27)
[2023-02-18 06:27] LABS: CALCIUM LEVEL 9.5 MG/DL (8.3-10.6); CREATININE FOR GFR 1.2 MG/DL (0.55-1.30); POTASSIUM SERUM 4.5 MMOL/L (3.5-5.1)
[2023-02-18] MEDS: OMEPRAZOLE 20MG CAP PO SCH (07:21)
[2023-02-18] MEDS: PRIMIDONE 50MG TAB PO SCH ×2 (07:21→20:31)
[2023-02-18] MEDS: ASPIRIN 81MG ENTERIC TABLET PO SCH (07:21)
[2023-02-18] MEDS: DIVALPROEX 250MG TAB PO SCH ×2 (07:21→20:31)
[2023-02-18] MEDS: COMBIVENT RESPIMAT 100-20MCG INHALER 4GM INH SCH ×2 (07:34→19:08)
[2023-02-18 14:00] VITALS: BP 117/60; TEMP 97.6; O2SAT 95
[2023-02-18] MEDS ORDERED: NS 1,000 ML IV SCH (14:45)
[2023-02-18] MEDS ORDERED: MIRALAX *UNIT DOSE* 17GM PACKET PO PRN (14:50)
[2023-02-18] MEDS: PERCOCET 5MG/325MG TAB PO PRN ×2 (16:13→22:28)
[2023-02-18] MEDS: SENNA 8.6 MG TAB (SENOKOT) PO PRN (16:13)
[2023-02-18] MEDS: cefTRIAXone SOD 1 GM in D5W MINI-BAG PLUS 50 ML IV SCH (16:14)
[2023-02-18 20:00] VITALS: BP 128/59; TEMP 98.2; O2SAT 94
[2023-02-18] MEDS: ATORVASTATIN 20 MG TAB PO SCH (20:30)
[2023-02-18] MEDS: RAMELTEON 8 MG TAB (ROZEREM) PO SCH (20:30)
[2023-02-18] MEDS: SENOKOT S TAB PO SCH (20:31)
[2023-02-18] MEDS: GABAPENTIN 100 MG CAP PO SCH (20:31)
[2023-02-18] MEDS: AMITRIPTYLINE 25MG TABLET PO SCH (20:31)
[2023-02-19] MEDS: HEPARIN SOD (PORCINE) 5000UNITS/ML 1ML VIAL/SYRINGE SQ SCH ×3 (05:25→20:35)
[2023-02-19 06:00] VITALS: BP 115/56; TEMP 97.6; O2SAT 92
[2023-02-19 06:32] LABS: BASO % 0.1 % (0.0-1.0); EOS % 0.1 % (0.0-3.0); HEMOGLOBIN 8.7 g/dl (12.0-15.5); LYMPH # 2.7 10^3/uL (1.5-5.0); LYMPH % 33.1 % (24.0-44.0); MEAN CORPUSCULAR HEMOGLOBIN 30.7 pg (27.0-33.0); MEAN CORPUSCULAR HGB CONC 32.2 g/dl (32.0-36.5); MEAN CORPUSCULAR VOLUME 95.4 fl (80.0-96.0); MONO # 0.9 10^3/uL (0.0-0.8); NEUTROPHILS # 4.6 10^3/uL (1.5-8.5); PLATELET COUNT, AUTOMATED 186 10^3/uL (150-450); RED BLOOD COUNT 2.83 10^6/uL (4.00-5.40); WHITE BLOOD COUNT 8.3 10^3/uL (4.0-10.0)
[2023-02-19] MEDS: PERCOCET 5MG/325MG TAB PO PRN (06:33)
[2023-02-19 06:56] LABS: CALCIUM LEVEL 9.1 MG/DL (8.3-10.6); CREATININE FOR GFR 1.2 MG/DL (0.55-1.30); POTASSIUM SERUM 4.7 MMOL/L (3.5-5.1)
[2023-02-19] MEDS: COMBIVENT RESPIMAT 100-20MCG INHALER 4GM INH SCH ×2 (08:16→21:04)
[2023-02-19] MEDS: SENOKOT S TAB PO SCH ×2 (08:23→20:34)
[2023-02-19] MEDS: OMEPRAZOLE 20MG CAP PO SCH (08:23)
[2023-02-19] MEDS: DIVALPROEX 250MG TAB PO SCH ×2 (08:23→20:34)
[2023-02-19] MEDS: PRIMIDONE 50MG TAB PO SCH ×2 (08:23→20:34)
[2023-02-19] MEDS: ASPIRIN 81MG ENTERIC TABLET PO SCH (08:23)
[2023-02-19] MEDS: MIRALAX *UNIT DOSE* 17GM PACKET PO SCH (13:55)
[2023-02-19] MEDS: GABAPENTIN 100 MG CAP PO SCH ×2 (13:56→20:34)
[2023-02-19 14:00] VITALS: BP 146/68; TEMP 98; O2SAT 94
[2023-02-19] MEDS: cefTRIAXone SOD 1 GM in D5W MINI-BAG PLUS 50 ML IV SCH (17:33)
[2023-02-19 20:00] VITALS: BP 139/61; TEMP 97.9; O2SAT 96
[2023-02-19] MEDS: AMITRIPTYLINE 25MG TABLET PO SCH (20:34)
[2023-02-19] MEDS: RAMELTEON 8 MG TAB (ROZEREM) PO SCH (20:34)
[2023-02-19] MEDS: ATORVASTATIN 20 MG TAB PO SCH (20:34)
[2023-02-20] MEDS: HEPARIN SOD (PORCINE) 5000UNITS/ML 1ML VIAL/SYRINGE SQ SCH ×3 (05:29→20:26)
[2023-02-20 06:00] VITALS: BP 136/64; TEMP 97.6; O2SAT 96
[2023-02-20 07:09] LABS: HEMATOCRIT 27.7 % (36.0-47.0); MEAN CORPUSCULAR HEMOGLOBIN 30.7 pg (27.0-33.0); MEAN CORPUSCULAR HGB CONC 32.5 g/dl (32.0-36.5); MEAN CORPUSCULAR VOLUME 94.5 fl (80.0-96.0); PLATELET COUNT, AUTOMATED 201 10^3/uL (150-450); RED BLOOD COUNT 2.93 10^6/uL (4.00-5.40); WHITE BLOOD COUNT 5.6 10^3/uL (4.0-10.0)
[2023-02-20] MEDS: COMBIVENT RESPIMAT 100-20MCG INHALER 4GM INH SCH ×2 (07:18→20:09)
[2023-02-20 07:29] LABS: CALCIUM LEVEL 9.7 MG/DL (8.3-10.6); CREATININE FOR GFR 1.07 MG/DL (0.55-1.30); GLOMERULAR FILTRATION RATE 52.5 (>32); POTASSIUM SERUM 4.7 MMOL/L (3.5-5.1)
[2023-02-20] MEDS: DIVALPROEX 250MG TAB PO SCH ×2 (09:28→20:24)
[2023-02-20] MEDS: MIRALAX *UNIT DOSE* 17GM PACKET PO SCH (09:28)
[2023-02-20] MEDS: ASPIRIN 81MG ENTERIC TABLET PO SCH (09:28)
[2023-02-20] MEDS: PERCOCET 5MG/325MG TAB PO PRN (09:28)
[2023-02-20] MEDS: OMEPRAZOLE 20MG CAP PO SCH (09:28)
[2023-02-20] MEDS: PRIMIDONE 50MG TAB PO SCH ×2 (09:28→20:25)
[2023-02-20] MEDS: GABAPENTIN 100 MG CAP PO SCH ×2 (09:29→20:25)
[2023-02-20] MEDS: SENOKOT S TAB PO SCH ×2 (09:29→20:24)
[2023-02-20] MEDS ORDERED: NITROFURANTOIN (MACROBID) 100 MG CAP PO SCH (12:50)
[2023-02-20 14:00] VITALS: BP 150/48; TEMP 96.7; O2SAT 94
[2023-02-20] MEDS ORDERED: LINEZOLID 600MG TABLET (ZYVOX) PO SCH (14:15)
[2023-02-20] MEDS: BISACODYL 10MG SUPP PR PRN (15:49)
[2023-02-20] MEDS ORDERED: PHENAZOPYRIDINE 100 MG TAB PO SCH (16:00)
[2023-02-20 20:00] VITALS: BP 163/73; TEMP 97.2; O2SAT 97
[2023-02-20] MEDS: RAMELTEON 8 MG TAB (ROZEREM) PO SCH (20:24)
[2023-02-20] MEDS: AMITRIPTYLINE 25MG TABLET PO SCH (20:25)
[2023-02-20] MEDS: ATORVASTATIN 20 MG TAB PO SCH (20:25)
[2023-02-21 02:25] VITALS: O2SAT 87
[2023-02-21 02:26] VITALS: O2SAT 90
[2023-02-21] MEDS: HEPARIN SOD (PORCINE) 5000UNITS/ML 1ML VIAL/SYRINGE SQ SCH ×3 (05:20→19:34)
[2023-02-21 05:50] LABS: HEMATOCRIT 26.2 % (36.0-47.0); HEMOGLOBIN 8.6 g/dl (12.0-15.5); MEAN CORPUSCULAR HEMOGLOBIN 30.4 pg (27.0-33.0); MEAN CORPUSCULAR HGB CONC 32.8 g/dl (32.0-36.5); MEAN CORPUSCULAR VOLUME 92.6 fl (80.0-96.0); PLATELET COUNT, AUTOMATED 218 10^3/uL (150-450); RED BLOOD COUNT 2.83 10^6/uL (4.00-5.40); WHITE BLOOD COUNT 6.2 10^3/uL (4.0-10.0)
[2023-02-21 06:00] VITALS: BP 121/57; TEMP 97.7; O2SAT 92
[2023-02-21 06:15] LABS: CALCIUM LEVEL 9.9 MG/DL (8.3-10.6); CREATININE FOR GFR 1.01 MG/DL (0.55-1.30); GLOMERULAR FILTRATION RATE 56.1 (>32); POTASSIUM SERUM 4.7 MMOL/L (3.5-5.1)
[2023-02-21] MEDS: COMBIVENT RESPIMAT 100-20MCG INHALER 4GM INH SCH ×2 (07:23→19:36)
[2023-02-21] MEDS: GABAPENTIN 100 MG CAP PO SCH ×2 (07:27→19:33)
[2023-02-21] MEDS: MIRALAX *UNIT DOSE* 17GM PACKET PO SCH (07:27)
[2023-02-21] MEDS: SENOKOT S TAB PO SCH ×2 (07:28→19:33)
[2023-02-21] MEDS: DIVALPROEX 250MG TAB PO SCH ×2 (07:28→19:33)
[2023-02-21] MEDS: ASPIRIN 81MG ENTERIC TABLET PO SCH (07:28)
[2023-02-21] MEDS: PRIMIDONE 50MG TAB PO SCH ×2 (07:28→19:33)
[2023-02-21] MEDS: OMEPRAZOLE 20MG CAP PO SCH (07:28)
[2023-02-21] MEDS: PERCOCET 5MG/325MG TAB PO PRN (10:03)
[2023-02-21] MEDS ORDERED: FUROSEMIDE 20 MG TAB PO ONE (12:35)
[2023-02-21 14:00] VITALS: BP 134/61; TEMP 97.1; O2SAT 97
[2023-02-21] MEDS: BISACODYL 10MG SUPP PR PRN (17:51)
[2023-02-21 19:15] VITALS: BP 135/65; TEMP 97.6; O2SAT 97
[2023-02-21] MEDS: RAMELTEON 8 MG TAB (ROZEREM) PO SCH (19:33)
[2023-02-21] MEDS: ATORVASTATIN 20 MG TAB PO SCH (19:33)
[2023-02-21] MEDS: AMITRIPTYLINE 25MG TABLET PO SCH (19:34)
[2023-02-21] MEDS ORDERED: BISACODYL 10MG SUPP PR ONE (23:15)
[2023-02-22] MEDS: SENNA 8.6 MG TAB (SENOKOT) PO PRN (00:05)
[2023-02-22 05:10] VITALS: BP 122/53; TEMP 97.1; O2SAT 97
[2023-02-22] MEDS: HEPARIN SOD (PORCINE) 5000UNITS/ML 1ML VIAL/SYRINGE SQ SCH ×3 (05:26→19:58)
[2023-02-22 06:09] LABS: HEMATOCRIT 25.7 % (36.0-47.0); HEMOGLOBIN 8.4 g/dl (12.0-15.5); MEAN CORPUSCULAR HEMOGLOBIN 30.5 pg (27.0-33.0); MEAN CORPUSCULAR HGB CONC 32.7 g/dl (32.0-36.5); MEAN CORPUSCULAR VOLUME 93.5 fl (80.0-96.0); PLATELET COUNT, AUTOMATED 220 10^3/uL (150-450); RED BLOOD COUNT 2.75 10^6/uL (4.00-5.40)
[2023-02-22 06:33] LABS: ALBUMIN 2.1 G/DL (3.2-5.2); BILIRUBIN,TOTAL 0.2 MG/DL (0.3-1.2); CREATININE FOR GFR 1.18 MG/DL (0.55-1.30); GLOMERULAR FILTRATION RATE 46.9 (>32); MAGNESIUM LEVEL 1.6 MG/DL (1.8-2.4); POTASSIUM SERUM 4.2 MMOL/L (3.5-5.1)
[2023-02-22] MEDS: MIRALAX *UNIT DOSE* 17GM PACKET PO SCH (07:28)
[2023-02-22] MEDS: ASPIRIN 81MG ENTERIC TABLET PO SCH (07:28)
[2023-02-22] MEDS: GABAPENTIN 100 MG CAP PO SCH ×2 (07:28→19:58)
[2023-02-22] MEDS: OMEPRAZOLE 20MG CAP PO SCH (07:28)
[2023-02-22] MEDS: PRIMIDONE 50MG TAB PO SCH ×2 (07:29→19:58)
[2023-02-22] MEDS: SENOKOT S TAB PO SCH ×2 (07:29→19:57)
[2023-02-22] MEDS: DIVALPROEX 250MG TAB PO SCH ×2 (07:29→19:57)
[2023-02-22] MEDS: COMBIVENT RESPIMAT 100-20MCG INHALER 4GM INH SCH ×2 (07:58→19:45)
[2023-02-22] MEDS: MAGNESIUM OXIDE 400MG TAB (MAG-OX) PO SCH ×2 (10:49→19:57)
[2023-02-22 14:00] VITALS: BP 132/62; TEMP 97; O2SAT 96
[2023-02-22 19:32] VITALS: BP 129/58; TEMP 97.2; O2SAT 94
[2023-02-22] MEDS: AMITRIPTYLINE 25MG TABLET PO SCH (19:57)
[2023-02-22] MEDS: RAMELTEON 8 MG TAB (ROZEREM) PO SCH (19:58)
[2023-02-22] MEDS: ATORVASTATIN 20 MG TAB PO SCH (19:58)
[2023-02-23 05:42] LABS: HEMATOCRIT 25.8 % (36.0-47.0); HEMOGLOBIN 8.4 g/dl (12.0-15.5); MEAN CORPUSCULAR HEMOGLOBIN 30.9 pg (27.0-33.0); MEAN CORPUSCULAR HGB CONC 32.6 g/dl (32.0-36.5); MEAN CORPUSCULAR VOLUME 94.9 fl (80.0-96.0); PLATELET COUNT, AUTOMATED 226 10^3/uL (150-450); RED BLOOD COUNT 2.72 10^6/uL (4.00-5.40); WHITE BLOOD COUNT 5.8 10^3/uL (4.0-10.0)
[2023-02-23 06:00] VITALS: BP 142/74; TEMP 96.9; O2SAT 94
[2023-02-23 06:04] LABS: CALCIUM LEVEL 9.9 MG/DL (8.3-10.6); CREATININE FOR GFR 1.11 MG/DL (0.55-1.30); GLOMERULAR FILTRATION RATE 50.3 (>32); MAGNESIUM LEVEL 1.8 MG/DL (1.8-2.4); POTASSIUM SERUM 4.4 MMOL/L (3.5-5.1)
[2023-02-23] MEDS: HEPARIN SOD (PORCINE) 5000UNITS/ML 1ML VIAL/SYRINGE SQ SCH ×3 (06:09→21:37)
[2023-02-23] MEDS: COMBIVENT RESPIMAT 100-20MCG INHALER 4GM INH SCH ×2 (08:07→19:53)
[2023-02-23] MEDS: ASPIRIN 81MG ENTERIC TABLET PO SCH (08:33)
[2023-02-23] MEDS: DIVALPROEX 250MG TAB PO SCH ×2 (08:33→20:51)
[2023-02-23] MEDS: MIRALAX *UNIT DOSE* 17GM PACKET PO SCH (08:33)
[2023-02-23] MEDS: OMEPRAZOLE 20MG CAP PO SCH (08:33)
[2023-02-23] MEDS: SENOKOT S TAB PO SCH ×2 (08:34→20:51)
[2023-02-23] MEDS: SENNA 8.6 MG TAB (SENOKOT) PO PRN (08:34)
[2023-02-23] MEDS: PRIMIDONE 50MG TAB PO SCH ×2 (08:34→20:51)
[2023-02-23] MEDS: GABAPENTIN 100 MG CAP PO SCH ×2 (08:34→20:51)
[2023-02-23 14:00] VITALS: BP 135/63; TEMP 97.2; O2SAT 96
[2023-02-23 20:00] VITALS: BP 141/64; TEMP 97.1; O2SAT 97
[2023-02-23] MEDS: AMITRIPTYLINE 25MG TABLET PO SCH (20:51)
[2023-02-23] MEDS: RAMELTEON 8 MG TAB (ROZEREM) PO SCH (20:51)
[2023-02-23] MEDS: ATORVASTATIN 20 MG TAB PO SCH (20:51)
[2023-02-24] MEDS: HEPARIN SOD (PORCINE) 5000UNITS/ML 1ML VIAL/SYRINGE SQ SCH ×3 (05:47→21:31)
[2023-02-24 06:00] VITALS: BP 108/49; TEMP 96.2; O2SAT 94
[2023-02-24] MEDS: COMBIVENT RESPIMAT 100-20MCG INHALER 4GM INH SCH ×2 (07:01→18:52)
[2023-02-24] MEDS: GABAPENTIN 100 MG CAP PO SCH ×2 (08:30→21:28)
[2023-02-24] MEDS: PERCOCET 5MG/325MG TAB PO PRN ×2 (08:30→22:24)
[2023-02-24] MEDS: SENOKOT S TAB PO SCH ×2 (08:30→21:29)
[2023-02-24] MEDS: OMEPRAZOLE 20MG CAP PO SCH (08:31)
[2023-02-24] MEDS: DIVALPROEX 250MG TAB PO SCH ×2 (08:31→21:29)
[2023-02-24] MEDS: ASPIRIN 81MG ENTERIC TABLET PO SCH (08:31)
[2023-02-24] MEDS: PRIMIDONE 50MG TAB PO SCH ×2 (08:31→21:29)
[2023-02-24] MEDS: MIRALAX *UNIT DOSE* 17GM PACKET PO SCH (08:35)
[2023-02-24 14:00] VITALS: BP 150/70; TEMP 97; O2SAT 96
[2023-02-24 20:00] VITALS: BP 142/63; TEMP 96.7; O2SAT 93
[2023-02-24] MEDS: RAMELTEON 8 MG TAB (ROZEREM) PO SCH (21:29)
[2023-02-24] MEDS: ATORVASTATIN 20 MG TAB PO SCH (21:29)
[2023-02-24] MEDS: AMITRIPTYLINE 25MG TABLET PO SCH (21:30)
[2023-02-25] MEDS: HEPARIN SOD (PORCINE) 5000UNITS/ML 1ML VIAL/SYRINGE SQ SCH ×3 (05:49→20:44)
[2023-02-25 06:00] VITALS: BP 133/60; TEMP 97.1; O2SAT 95
[2023-02-25] MEDS: COMBIVENT RESPIMAT 100-20MCG INHALER 4GM INH SCH ×2 (07:03→21:35)
[2023-02-25] MEDS: DIVALPROEX 250MG TAB PO SCH ×2 (08:28→20:39)
[2023-02-25] MEDS: OMEPRAZOLE 20MG CAP PO SCH (08:28)
[2023-02-25] MEDS: SENOKOT S TAB PO SCH ×2 (08:28→20:39)
[2023-02-25] MEDS: GABAPENTIN 100 MG CAP PO SCH ×2 (08:28→20:39)
[2023-02-25] MEDS: ASPIRIN 81MG ENTERIC TABLET PO SCH (08:28)
[2023-02-25] MEDS: PRIMIDONE 50MG TAB PO SCH ×2 (08:28→20:39)
[2023-02-25] MEDS: MIRALAX *UNIT DOSE* 17GM PACKET PO SCH (08:29)
[2023-02-25 14:00] VITALS: BP 135/60; TEMP 97.6; O2SAT 91
[2023-02-25 19:41] VITALS: BP 128/58; TEMP 97.6; O2SAT 91
[2023-02-25] MEDS: ATORVASTATIN 20 MG TAB PO SCH (20:39)
[2023-02-25] MEDS: AMITRIPTYLINE 25MG TABLET PO SCH (20:39)
[2023-02-25] MEDS: RAMELTEON 8 MG TAB (ROZEREM) PO SCH (20:39)
[2023-02-25] MEDS: PERCOCET 5MG/325MG TAB PO PRN (20:41)
[2023-02-26] MEDS: HEPARIN SOD (PORCINE) 5000UNITS/ML 1ML VIAL/SYRINGE SQ SCH ×3 (05:40→21:16)
[2023-02-26 05:41] VITALS: BP 117/51; TEMP 98; O2SAT 94
[2023-02-26] MEDS: PERCOCET 5MG/325MG TAB PO PRN (06:09)
[2023-02-26] MEDS: COMBIVENT RESPIMAT 100-20MCG INHALER 4GM INH SCH ×2 (08:35→20:00)
[2023-02-26] MEDS: MIRALAX *UNIT DOSE* 17GM PACKET PO SCH (09:00)
[2023-02-26] MEDS: SENOKOT S TAB PO SCH (09:00)
[2023-02-26] MEDS: ASPIRIN 81MG ENTERIC TABLET PO SCH (09:24)
[2023-02-26] MEDS: GABAPENTIN 100 MG CAP PO SCH ×2 (09:24→20:49)
[2023-02-26] MEDS: OMEPRAZOLE 20MG CAP PO SCH (09:24)
[2023-02-26] MEDS: PRIMIDONE 50MG TAB PO SCH ×2 (09:25→20:50)
[2023-02-26] MEDS: DIVALPROEX 250MG TAB PO SCH ×2 (09:25→20:49)
[2023-02-26] MEDS ORDERED: MAALOX 30 ML SUSP *UDC PO PRN (12:25)
[2023-02-26] MEDS ORDERED: SENNA 8.6 MG TAB (SENOKOT) PO SCH (12:25)
[2023-02-26 14:00] VITALS: BP 113/54; TEMP 97.1; O2SAT 98
[2023-02-26 19:33] VITALS: BP 162/64; TEMP 98.7; O2SAT 99
[2023-02-26] MEDS: ATORVASTATIN 20 MG TAB PO SCH (20:49)
[2023-02-26] MEDS: RAMELTEON 8 MG TAB (ROZEREM) PO SCH (20:49)
[2023-02-26] MEDS: AMITRIPTYLINE 25MG TABLET PO SCH (20:50)
[2023-02-27 05:27] VITALS: BP 118/58; TEMP 98.4; O2SAT 94
[2023-02-27] MEDS: HEPARIN SOD (PORCINE) 5000UNITS/ML 1ML VIAL/SYRINGE SQ SCH ×3 (05:51→20:54)
[2023-02-27 06:43] LABS: HEMOGLOBIN 8.2 g/dl (12.0-15.5); MEAN CORPUSCULAR HEMOGLOBIN 30.4 pg (27.0-33.0); MEAN CORPUSCULAR HGB CONC 31.5 g/dl (32.0-36.5); MEAN CORPUSCULAR VOLUME 96.3 fl (80.0-96.0); PLATELET COUNT, AUTOMATED 241 10^3/uL (150-450); WHITE BLOOD COUNT 6.3 10^3/uL (4.0-10.0)
[2023-02-27 07:08] LABS: ALBUMIN 2.2 G/DL (3.2-5.2); BILIRUBIN,TOTAL 0.2 MG/DL (0.3-1.2); CALCIUM LEVEL 10.3 MG/DL (8.3-10.6); CREATININE FOR GFR 1.21 MG/DL (0.55-1.30); GLOMERULAR FILTRATION RATE 45.6 (>32); MAGNESIUM LEVEL 1.8 MG/DL (1.8-2.4); POTASSIUM SERUM 4.6 MMOL/L (3.5-5.1); TOTAL PROTEIN 5.2 G/DL (5.7-8.2)
[2023-02-27] MEDS: DIVALPROEX 250MG TAB PO SCH ×2 (07:32→20:52)
[2023-02-27] MEDS: GABAPENTIN 100 MG CAP PO SCH ×2 (07:33→20:52)
[2023-02-27] MEDS: ASPIRIN 81MG ENTERIC TABLET PO SCH (07:33)
[2023-02-27] MEDS: OMEPRAZOLE 20MG CAP PO SCH (07:33)
[2023-02-27] MEDS: PRIMIDONE 50MG TAB PO SCH ×2 (07:33→20:53)
[2023-02-27] MEDS: MIRALAX *UNIT DOSE* 17GM PACKET PO SCH (07:35)
[2023-02-27] MEDS: COMBIVENT RESPIMAT 100-20MCG INHALER 4GM INH SCH ×2 (08:33→20:45)
[2023-02-27 14:00] VITALS: BP 120/56; TEMP 97; O2SAT 94
[2023-02-27 19:56] VITALS: BP 128/95; TEMP 98; O2SAT 98
[2023-02-27] MEDS: RAMELTEON 8 MG TAB (ROZEREM) PO SCH ×2 (20:52→21:00)
[2023-02-27] MEDS: SENNA 8.6 MG TAB (SENOKOT) PO SCH ×2 (20:53→21:00)
[2023-02-27] MEDS: AMITRIPTYLINE 25MG TABLET PO SCH (20:53)
[2023-02-27] MEDS: ATORVASTATIN 20 MG TAB PO SCH ×2 (20:53→21:00)
[2023-02-28] MEDS: HEPARIN SOD (PORCINE) 5000UNITS/ML 1ML VIAL/SYRINGE SQ SCH ×3 (05:48→22:15)
[2023-02-28 05:57] VITALS: BP 132/60; TEMP 97.3; O2SAT 96
[2023-02-28 06:33] LABS: CALCIUM LEVEL 10.2 MG/DL (8.3-10.6); CREATININE FOR GFR 1.15 MG/DL (0.55-1.30); GLOMERULAR FILTRATION RATE 48.3 (>32); POTASSIUM SERUM 4.9 MMOL/L (3.5-5.1)
[2023-02-28] MEDS: COMBIVENT RESPIMAT 100-20MCG INHALER 4GM INH SCH ×2 (08:12→20:47)
[2023-02-28] MEDS: ASPIRIN 81MG ENTERIC TABLET PO SCH (08:21)
[2023-02-28] MEDS: OMEPRAZOLE 20MG CAP PO SCH (08:21)
[2023-02-28] MEDS: GABAPENTIN 100 MG CAP PO SCH ×3 (08:22→22:14)
[2023-02-28] MEDS: DIVALPROEX 250MG TAB PO SCH ×2 (08:22→22:15)
[2023-02-28] MEDS: MIRALAX *UNIT DOSE* 17GM PACKET PO SCH (08:22)
[2023-02-28] MEDS: PRIMIDONE 50MG TAB PO SCH ×2 (08:22→22:13)
[2023-02-28 14:00] VITALS: BP 120/56; TEMP 97.1; O2SAT 99
[2023-02-28 20:00] VITALS: BP 139/63; TEMP 97.1; O2SAT 98
[2023-02-28] MEDS: SENNA 8.6 MG TAB (SENOKOT) PO SCH (21:00)
[2023-02-28] MEDS: RAMELTEON 8 MG TAB (ROZEREM) PO SCH (22:13)
[2023-02-28] MEDS: AMITRIPTYLINE 25MG TABLET PO SCH (22:14)
[2023-02-28] MEDS: ATORVASTATIN 20 MG TAB PO SCH (22:15)
[2023-03-01] MEDS: HEPARIN SOD (PORCINE) 5000UNITS/ML 1ML VIAL/SYRINGE SQ SCH ×2 (05:09→14:00)
[2023-03-01 06:00] VITALS: BP 147/66; TEMP 96.2; O2SAT 98
[2023-03-01] MEDS: PRIMIDONE 50MG TAB PO SCH (07:47)
[2023-03-01] MEDS: ASPIRIN 81MG ENTERIC TABLET PO SCH (07:47)
[2023-03-01] MEDS: DIVALPROEX 250MG TAB PO SCH (07:47)
[2023-03-01 07:48] VITALS: BP 138/71
[2023-03-01] MEDS: OMEPRAZOLE 20MG CAP PO SCH (07:48)
[2023-03-01] MEDS: GABAPENTIN 100 MG CAP PO SCH (07:49)
[2023-03-01] MEDS: MIRALAX *UNIT DOSE* 17GM PACKET PO SCH (07:50)
[2023-03-01] MEDS: COMBIVENT RESPIMAT 100-20MCG INHALER 4GM INH SCH (08:08)
[2023-03-01] MEDS ORDERED: ACETAMINOPHEN TAB 650MG DOSE (2X325MG) PO PRN (13:45)
[2023-03-01] MEDS ORDERED: GABA-1171 PO (14:35)
[2023-03-01] MEDS ORDERED: AMIT25TA19 PO (14:35)
== END 2023-03-01 15:00 | disposition home health service (06) | DRG 561 ==
LOC: M PM&R 14:30
PROVIDERS: ADMIT Student in an Organized Health Care Education/Training Program; ATTEND Student in an Organized Health Care Education/Training Program
DX: S82.832D Other fracture of upper and lower end of left fibula, subsequent encounter for closed fracture with routine healing (principal); G40.909 Epilepsy, unspecified, not intractable, without status epilepticus; W18.30XA Fall on same level, unspecified, initial encounter; Y92.092 Bedroom in other non-institutional residence as the place of occurrence of the external cause; Y93.01 Activity, walking, marching and hiking; I10 Essential (primary) hypertension; E78.5 Hyperlipidemia, unspecified; J44.9 Chronic obstructive pulmonary disease, unspecified; K21.9 Gastro-esophageal reflux disease without esophagitis; G25.81 Restless legs syndrome; R60.0 Localized edema; R42 Dizziness and giddiness; G47.30 Sleep apnea, unspecified; E66.9 Obesity, unspecified; R33.9 Retention of urine, unspecified; Z66 Do not resuscitate; R19.7 Diarrhea, unspecified; G89.11 Acute pain due to trauma; K59.00 Constipation, unspecified; R54 Age-related physical debility; M19.90 Unspecified osteoarthritis, unspecified site; G89.29 Other chronic pain; Z88.8 Allergy status to other drugs, medicaments and biological substances; Z79.899 Other long term (current) drug therapy; Z79.82 Long term (current) use of aspirin; Z91.81 History of falling; Z98.41 Cataract extraction status, right eye; Z98.42 Cataract extraction status, left eye; Z74.1 Need for assistance with personal care; Z90.49 Acquired absence of other specified parts of digestive tract; Z68.39 Body mass index [BMI] 39.0-39.9, adult; Z99.81 Dependence on supplemental oxygen; Z74.09 Other reduced mobility; Z99.3 Dependence on wheelchair

== ENCOUNTER → 2023-03-05 | Outpatient (CLI) | payer MEDICARE, OTHER ==
[2023-03-05 14:13] LABS: BASO % 0.3 % (0.0-1.0); HEMATOCRIT 32.2 % (36.0-47.0); HEMOGLOBIN 10.3 g/dl (12.0-15.5); LYMPH # 2.8 10^3/uL (1.5-5.0); LYMPH % 32.3 % (24.0-44.0); MEAN CORPUSCULAR HEMOGLOBIN 30.8 pg (27.0-33.0); MEAN CORPUSCULAR VOLUME 96.4 fl (80.0-96.0); MONO # 0.7 10^3/uL (0.0-0.8); NEUTROPHILS % 58.6 % (36.0-66.0); PLATELET COUNT, AUTOMATED 313 10^3/uL (150-450); RED BLOOD COUNT 3.34 10^6/uL (4.00-5.40); WHITE BLOOD COUNT 8.6 10^3/uL (4.0-10.0)
[2023-03-05 14:20] LABS: PERCENT SATURATION 17.8 % (13.2-45.0)
[2023-03-05 15:21] LABS: ALBUMIN 3.2 G/DL (3.2-5.2); BILIRUBIN,TOTAL 0.2 MG/DL (0.3-1.2); CREATININE FOR GFR 1.33 MG/DL (0.55-1.30); FREE T4 1.2 NG/DL (0.89-1.76); GLOMERULAR FILTRATION RATE 40.9 (>32); POTASSIUM SERUM 4.6 MMOL/L (3.5-5.1); THYROID STIMULATING HORMONE 1.065 uIU/ML (0.55-4.78); TOTAL 25(OH) VITAMIN D 75.7 NG/ML (20.0-100.0); TOTAL PROTEIN 6.8 G/DL (5.7-8.2)
[2023-03-05 15:38] LABS: HEMOGLOBIN A1c 5.4 % (4.0-6.0)
[2023-03-05 16:36] LABS: CHOLESTEROL RISK RATIO 3.08 (<5); HDL CHOLESTEROL 46.7 MG/DL (>40); LDL CHOLESTEROL 65.5 MG/DL (<100); NON-HDL-C 97.3 MG/DL
== END ==
LOC: M PLALAB 11:16
PROVIDERS: ATTEND Nurse Practitioner Family
DX: E78.00 Pure hypercholesterolemia, unspecified (principal); D64.9 Anemia, unspecified; R73.01 Impaired fasting glucose; E55.9 Vitamin D deficiency, unspecified; I12.9 Hypertensive chronic kidney disease with stage 1 through stage 4 chronic kidney disease, or unspecified chronic kidney disease

== ENCOUNTER → 2023-03-09 | Outpatient (CLI) | payer MEDICARE, OTHER | LOC: M SOG 10:17 | PROVIDERS: ATTEND Physician Assistant | DX: M25.572 Pain in left ankle and joints of left foot (principal) ==

== ENCOUNTER → 2023-04-06 | Outpatient (CLI) | payer MEDICARE, OTHER | LOC: M SOG 07:55 | PROVIDERS: ATTEND Physician Assistant | DX: S82.65XD Nondisplaced fracture of lateral malleolus of left fibula, subsequent encounter for closed fracture with routine healing (principal) ==

== ENCOUNTER → 2023-04-13 | Outpatient (CLI) | payer MEDICARE, OTHER | LOC: M SOG 10:01 | PROVIDERS: ATTEND Physician Assistant | DX: S82.65XD Nondisplaced fracture of lateral malleolus of left fibula, subsequent encounter for closed fracture with routine healing (principal); Y93.9 Activity, unspecified; Y92.9 Unspecified place or not applicable ==

== ENCOUNTER → 2023-04-30 | Outpatient (CLI) | payer MEDICARE, OTHER | LOC: M SOG 07:53 | PROVIDERS: ATTEND Physician Assistant | DX: S82.65XD Nondisplaced fracture of lateral malleolus of left fibula, subsequent encounter for closed fracture with routine healing (principal) ==

== ENCOUNTER 2023-05-22 12:43 | Emergency (ER) | payer MEDICARE, OTHER ==
[2023-05-22 13:17] LABS: BASO % 0.2 % (0.0-1.0); HEMATOCRIT 31.6 % (36.0-47.0); HEMOGLOBIN 10.3 g/dl (12.0-15.5); LYMPH # 4.2 10^3/uL (1.5-5.0); LYMPH % 41.1 % (24.0-44.0); MEAN CORPUSCULAR HEMOGLOBIN 30.2 pg (27.0-33.0); MEAN CORPUSCULAR HGB CONC 32.6 g/dl (32.0-36.5); MEAN CORPUSCULAR VOLUME 92.7 fl (80.0-96.0); MONO % 9.3 % (2.0-8.0); NEUTROPHILS % 48.4 % (36.0-66.0); PLATELET COUNT, AUTOMATED 234 10^3/uL (150-450); RED BLOOD COUNT 3.41 10^6/uL (4.00-5.40); WHITE BLOOD COUNT 10.3 10^3/uL (4.0-10.0)
[2023-05-22 13:29] LABS: INR 0.91
[2023-05-22 13:30] LABS: PARTIAL THROMBOPLASTIN TIME 26.5 SECONDS (24.8-34.2)
[2023-05-22] MEDS ORDERED: DULO1CAP6 (13:32)
[2023-05-22] MEDS ORDERED: DICL50TAB (13:32)
[2023-05-22] MEDS ORDERED: DIAZ5TAB (13:32)
[2023-05-22 13:48] LABS: CK-MB VALUE MASS < 1.0 NG/ML (<3.6); LIPASE 44 U/L (12-53)
[2023-05-22 13:50] LABS: ALBUMIN 2.8 G/DL (3.2-5.2); ALKALINE PHOSPHATASE 95 U/L (46-116); ALT/SGPT 11 U/L (7.0-40); AST/SGOT 9 U/L (<34); BILIRUBIN,DIRECT < 0.1 MG/DL (<0.4); BILIRUBIN,TOTAL 0.2 MG/DL (0.3-1.2); BLOOD UREA NITROGEN 22 MG/DL (9-23); CALCIUM LEVEL 10.5 MG/DL (8.3-10.6); CARBON DIOXIDE LEVEL 33 MMOL/L (20-31); CHLORIDE LEVEL 105 MMOL/L (98-107); CPK CREATINE PHOSPHOKINASE 25 U/L (34-145); CREATININE FOR GFR 1.01 MG/DL (0.55-1.30); GLUCOSE, FASTING 114 MG/DL (74-106); SODIUM LEVEL 141 MMOL/L (136-145); TOTAL PROTEIN 6.2 G/DL (5.7-8.2)
[2023-05-22 13:52] LABS: THYROID STIMULATING HORMONE 1.368 uIU/ML (0.55-4.78)
[2023-05-22 13:53] LABS: FREE T4 1.01 NG/DL (0.89-1.76)
[2023-05-22 14:38] LABS: CK-MB VALUE MASS < 1.0 NG/ML (<3.6)
[2023-05-22 14:39] LABS: CPK CREATINE PHOSPHOKINASE 22 U/L (34-145); MB/CK RELATIVE INDEX 4.54 (< OR =4)
[2023-05-22 16:46] VITALS: BP 167/65; O2SAT 97
[2023-05-22 16:55] VITALS: TEMP 97.8
== END 2023-05-22 17:00 | disposition home or self-care (01) ==
LOC: M ED 12:43
DX: R07.9 Chest pain, unspecified (principal); K80.20 Calculus of gallbladder without cholecystitis without obstruction; K21.9 Gastro-esophageal reflux disease without esophagitis; G40.89 Other seizures; Z88.8 Allergy status to other drugs, medicaments and biological substances; Z79.51 Long term (current) use of inhaled steroids; Z79.899 Other long term (current) drug therapy

== ENCOUNTER → 2023-06-14 | Outpatient (CLI) | payer MEDICARE, OTHER ==
[~2023-06-14] MED LIST changes: +DIAZ5TAB; +DICL50TAB; +DULO1CAP6; -MELA1TAB9 PO; +MELA5TAB58 PO
== END ==
LOC: M SLEEP 20:00
PROVIDERS: ATTEND Internal Medicine Pulmonary Disease
DX: G47.33 Obstructive sleep apnea (adult) (pediatric) (principal)

== ENCOUNTER → 2023-06-28 | Outpatient (CLI) | payer MEDICARE, OTHER | LOC: M SOG 09:04 | PROVIDERS: ATTEND Physician Assistant | DX: S82.65XD Nondisplaced fracture of lateral malleolus of left fibula, subsequent encounter for closed fracture with routine healing (principal) ==

== ENCOUNTER 2023-09-05 14:10 | Emergency (ER) | payer MEDICARE, OTHER ==
[~2023-09-05] VITALS: Ht 160 cm; Wt 101.8 kg
[2023-09-05 15:52] LABS: BASO % 0.2 % (0.0-1.0); HEMATOCRIT 30.9 % (36.0-47.0); HEMOGLOBIN 10.2 g/dl (12.0-15.5); LYMPH # 2.9 10^3/uL (1.5-5.0); LYMPH % 28.7 % (24.0-44.0); MEAN CORPUSCULAR HEMOGLOBIN 30.4 pg (27.0-33.0); MEAN CORPUSCULAR VOLUME 92.2 fl (80.0-96.0); MONO # 0.9 10^3/uL (0.0-0.8); MONO % 8.7 % (2.0-8.0); NEUTROPHILS # 6.3 10^3/uL (1.5-8.5); PLATELET COUNT, AUTOMATED 254 10^3/uL (150-450); RED BLOOD COUNT 3.35 10^6/uL (4.00-5.40); WHITE BLOOD COUNT 10.2 10^3/uL (4.0-10.0)
[2023-09-05 16:08] LABS: INR 0.97; PROTHROMBIN TIME 12.6 SECONDS (12.5-14.5)
[2023-09-05 16:18] LABS: ALBUMIN 2.9 G/DL (3.2-5.2); BILIRUBIN,TOTAL 0.2 MG/DL (0.3-1.2); CALCIUM LEVEL 11.3 MG/DL (8.3-10.6); CREATININE FOR GFR 1.16 MG/DL (0.55-1.30); GLOMERULAR FILTRATION RATE 47.7 (>32); POTASSIUM SERUM 5.2 MMOL/L (3.5-5.1); TOTAL PROTEIN 6.4 G/DL (5.7-8.2)
[2023-09-05 17:25] VITALS: O2SAT 95
[2023-09-05 17:30] VITALS: BP 170/69; TEMP 97.5
== END 2023-09-05 18:27 | disposition home or self-care (01) ==
LOC: EDBD 14:10 → M ED 14:10
DX: S39.92XA Unspecified injury of lower back, initial encounter (principal); Y92.410 Unspecified street and highway as the place of occurrence of the external cause; Y93.9 Activity, unspecified; Y99.9 Unspecified external cause status; W19.XXXA Unspecified fall, initial encounter; R94.31 Abnormal electrocardiogram [ECG] [EKG]; I10 Essential (primary) hypertension; Z88.8 Allergy status to other drugs, medicaments and biological substances; Z79.51 Long term (current) use of inhaled steroids; Z79.1 Long term (current) use of non-steroidal anti-inflammatories (NSAID); Z79.899 Other long term (current) drug therapy

== ENCOUNTER → 2023-09-24 | Outpatient (CLI) | payer MEDICARE, OTHER ==
[2023-09-24 12:37] LABS: BASO % 0.2 % (0.0-1.0); EOS % 0.1 % (0.0-3.0); HEMATOCRIT 34.5 % (36.0-47.0); LYMPH % 29.1 % (24.0-44.0); MEAN CORPUSCULAR HGB CONC 31.9 g/dl (32.0-36.5); MONO # 0.9 10^3/uL (0.0-0.8); MONO % 8.4 % (2.0-8.0); NEUTROPHILS # 6.4 10^3/uL (1.5-8.5); NEUTROPHILS % 61.7 % (36.0-66.0); PLATELET COUNT, AUTOMATED 238 10^3/uL (150-450); RED BLOOD COUNT 3.67 10^6/uL (4.00-5.40); WHITE BLOOD COUNT 10.3 10^3/uL (4.0-10.0)
[2023-09-24 12:43] LABS: FREE T4 1.15 NG/DL (0.89-1.76); THYROID STIMULATING HORMONE 0.885 uIU/ML (0.55-4.78)
[2023-09-24 12:45] LABS: ALBUMIN 3.1 G/DL (3.2-5.2); ALKALINE PHOSPHATASE 109 U/L (46-116); ALT/SGPT 21 U/L (7.0-40); AST/SGOT 15 U/L (<34); BILIRUBIN,TOTAL < 0.2 MG/DL (0.3-1.2); BLOOD UREA NITROGEN 25 MG/DL (9-23); CARBON DIOXIDE LEVEL 30 MMOL/L (20-31); CHLORIDE LEVEL 105 MMOL/L (98-107); CHOLESTEROL LEVEL 123 MG/DL (<200); CHOLESTEROL RISK RATIO 2.76 (<5); CREATININE FOR GFR 0.99 MG/DL (0.55-1.30); GLOMERULAR FILTRATION RATE 57.3 (>32); GLUCOSE, FASTING 105 MG/DL (74-106); HDL CHOLESTEROL 44.5 MG/DL (>40); IRON (FE) 61 UG/DL (50-170); LDL CHOLESTEROL 50.1 MG/DL (<100); NON-HDL-C 78.5 MG/DL; PERCENT SATURATION 17.6 % (13.2-45.0); POTASSIUM SERUM 5.1 MMOL/L (3.5-5.1); SODIUM LEVEL 140 MMOL/L (136-145); TOTAL IRON BINDING CAPACITY 346 UG/DL (250-425); TOTAL PROTEIN 6.5 G/DL (5.7-8.2); TRIGLYCERIDES LEVEL 142 MG/DL (<150)
[2023-09-24 13:02] LABS: HEMOGLOBIN A1c 5.3 % (4.0-6.0)
[2023-09-25 14:37] LABS: PTH INTACT 184.2 PG/ML (18.5-88.0)
== END ==
LOC: M PLALAB 10:12
PROVIDERS: ATTEND Nurse Practitioner Family
DX: R73.01 Impaired fasting glucose (principal); I10 Essential (primary) hypertension; D64.9 Anemia, unspecified; E78.00 Pure hypercholesterolemia, unspecified; E55.9 Vitamin D deficiency, unspecified

== ENCOUNTER → 2023-09-24 | Outpatient (CLI) | payer MEDICARE, OTHER | LOC: M SOG 07:57 | PROVIDERS: ATTEND Physician Assistant | DX: M25.572 Pain in left ankle and joints of left foot (principal) ==

== ENCOUNTER → 2023-10-18 | Outpatient (CLI) | payer MEDICARE, OTHER | LOC: M RAD 15:41 | PROVIDERS: ATTEND Physician Assistant | DX: S82.842A Displaced bimalleolar fracture of left lower leg, initial encounter for closed fracture (principal); Y93.9 Activity, unspecified; Y92.9 Unspecified place or not applicable ==

== ENCOUNTER → 2023-11-26 | Outpatient (CLI) | payer MEDICARE, OTHER | LOC: M SOG 07:57 | PROVIDERS: ATTEND Physician Assistant | DX: S82.842D Displaced bimalleolar fracture of left lower leg, subsequent encounter for closed fracture with routine healing (principal) ==

== ENCOUNTER → 2023-12-05 | Outpatient (CLI) | payer MEDICARE, OTHER | LOC: M RAD 15:06 | PROVIDERS: ATTEND Nurse Practitioner Family | DX: S99.922A Unspecified injury of left foot, initial encounter (principal); W18.30XA Fall on same level, unspecified, initial encounter; Y92.009 Unspecified place in unspecified non-institutional (private) residence as the place of occurrence of the external cause ==

== ENCOUNTER → 2024-02-18 | Outpatient (CLI) | payer MEDICARE, OTHER | LOC: M PLAIMG 14:34 | PROVIDERS: ATTEND Nurse Practitioner Family | DX: S69.92XA Unspecified injury of left wrist, hand and finger(s), initial encounter (principal); M79.642 Pain in left hand; W18.30XA Fall on same level, unspecified, initial encounter; Y92.009 Unspecified place in unspecified non-institutional (private) residence as the place of occurrence of the external cause ==

== ENCOUNTER → 2024-04-24 | Outpatient (CLI) | payer MEDICARE, OTHER ==
[2024-04-24 17:55] LABS: IONIZED CALCIUM 5.4 MG/DL (4.5-5.3)
[2024-04-24 18:10] LABS: BASO % 0.3 % (0.0-1.0); HEMATOCRIT 37.2 % (36.0-47.0); HEMOGLOBIN 11.8 g/dl (12.0-15.5); LYMPH # 4.3 10^3/uL (1.5-5.0); MEAN CORPUSCULAR HGB CONC 31.7 g/dl (32.0-36.5); MEAN CORPUSCULAR VOLUME 91.4 fl (80.0-96.0); MONO # 0.7 10^3/uL (0.0-0.8); MONO % 6.5 % (2.0-8.0); NEUTROPHILS # 5.2 10^3/uL (1.5-8.5); NEUTROPHILS % 50.7 % (36.0-66.0); PLATELET COUNT, AUTOMATED 268 10^3/uL (150-450); RED BLOOD COUNT 4.07 10^6/uL (4.00-5.40); WHITE BLOOD COUNT 10.2 10^3/uL (4.0-10.0)
[2024-04-24 18:35] LABS: HEMOGLOBIN A1c 6.2 % (4.0-6.0)
[2024-04-24 18:36] LABS: VALPROIC ACID (DEPAKOTE) 51.2 UG/ML (50.0-100.0)
[2024-04-24 18:38] LABS: ALBUMIN 3.2 G/DL (3.2-5.2); BILIRUBIN,TOTAL 0.2 MG/DL (0.3-1.2); CALCIUM LEVEL 11.2 MG/DL (8.3-10.6); CHOLESTEROL RISK RATIO 3.32 (<5); CREATININE FOR GFR 1.1 MG/DL (0.55-1.30); GLOMERULAR FILTRATION RATE 50.7 (>32); HDL CHOLESTEROL 47.8 MG/DL (>40); LDL CHOLESTEROL 77.4 MG/DL (<100); NON-HDL-C 111.2 MG/DL; POTASSIUM SERUM 4.8 MMOL/L (3.5-5.1); PTH INTACT 292.1 PG/ML (18.5-88.0); TOTAL PROTEIN 7.5 G/DL (5.7-8.2)
== END ==
LOC: M RAD 16:09
PROVIDERS: ATTEND Nurse Practitioner Family
DX: S99.921A Unspecified injury of right foot, initial encounter (principal); E21.0 Primary hyperparathyroidism; W18.30XA Fall on same level, unspecified, initial encounter; Y92.009 Unspecified place in unspecified non-institutional (private) residence as the place of occurrence of the external cause; E78.00 Pure hypercholesterolemia, unspecified; G40.909 Epilepsy, unspecified, not intractable, without status epilepticus; G25.0 Essential tremor; R73.01 Impaired fasting glucose; D64.9 Anemia, unspecified; E55.9 Vitamin D deficiency, unspecified

== ENCOUNTER → 2024-05-21 | Outpatient (CLI) | payer MEDICARE, OTHER ==
[2024-05-21 16:31] LABS: CALCIUM LEVEL 9.2 MG/DL (8.3-10.6); CREATININE FOR GFR 1.01 MG/DL (0.55-1.30); GLOMERULAR FILTRATION RATE 55.9 (>32); MAGNESIUM LEVEL 1.5 MG/DL (1.8-2.4); PHOSPHORUS LEVEL 3.5 MG/DL (2.4-5.1); POTASSIUM SERUM 4.4 MMOL/L (3.5-5.1); PTH INTACT 152.5 PG/ML (18.5-88.0); TOTAL 25(OH) VITAMIN D 57.8 NG/ML (20.0-100.0)
[2024-05-22 10:21] LABS: T P ELECTROPHORESIS SO 7.1 g/dL (6.1-8.1)
[2024-05-26 08:22] LABS: ALBUMIN SPEP 3.3 g/dL (3.8-4.8); ALPHA-1-GLOBULINS SO 0.4 g/dL (0.2-0.3); ALPHA-2-GLOBULINS SO 0.9 g/dL (0.5-0.9); BETA 2 GLOBULIN 0.6 g/dL (0.2-0.5); BETA-GLOBULIN SO 0.6 g/dL (0.4-0.6); GAMMA GLOBULINS SO 1.3 g/dL (0.8-1.7)
== END ==
LOC: M PLALAB 13:13
PROVIDERS: ATTEND Nurse Practitioner Family
DX: E21.0 Primary hyperparathyroidism (principal)

== ENCOUNTER → 2024-05-28 | Outpatient (REF) | payer MEDICARE, OTHER ==
[2024-05-29 12:36] LABS: APPEARANCE, URINE CLOUDY (CLEAR); BACTERIA, URINE AUTO 1+ (NEGATIVE); BILIRUBIN, URINE AUTO NEGATIVE (NEGATIVE); BLOOD, URINE BLOOD 1+ (NEGATIVE); COLOR, URINE YELLOW (YELLOW); GLUCOSE, URINE (UA) AUTO NEGATIVE (NEGATIVE); KETONE, URINE AUTO NEGATIVE (NEGATIVE); LEUKOCYTE ESTERASE, URINE AUTO 3+ (NEGATIVE); NITRITE, URINE AUTO NEGATIVE (NEGATIVE); PROTEIN, URINE AUTO 3+ mg/dL (NEGATIVE); RBC, URINE AUTO 13 /HPF (0-3); SPECIFIC GRAVITY URINE AUTO 1.014 (1.002-1.035); SQUAMOUS EPITHELIAL CELL UR AU 4 /HPF (0-6); WBC, URINE AUTO TNTC /HPF (0-3)
== END ==
LOC: M SFHCPLAZ 11:22
PROVIDERS: ATTEND Nurse Practitioner Family
DX: R35.0 Frequency of micturition (principal)

== ENCOUNTER → 2024-07-21 | Outpatient (REF) | payer MEDICARE, OTHER | LOC: M SFHCPLAZ 09:51 | PROVIDERS: ATTEND Student in an Organized Health Care Education/Training Program | DX: J02.9 Acute pharyngitis, unspecified (principal) ==

== ENCOUNTER → 2024-07-22 | Outpatient (CLI) | payer MEDICARE, OTHER | LOC: M RAD 13:05 | PROVIDERS: ATTEND Student in an Organized Health Care Education/Training Program | DX: R60.9 Edema, unspecified (principal) ==

== ENCOUNTER 2024-11-14 16:24 | Emergency (ER) | payer MEDICARE, OTHER ==
[~2024-11-14] VITALS: Ht 160 cm; Wt 97.3 kg
[2024-11-14 21:28] VITALS: BP 147/72; TEMP 96.3; O2SAT 95
== END 2024-11-14 21:31 | disposition home or self-care (01) ==
LOC: M ED 16:24
DX: S83.92XA Sprain of unspecified site of left knee, initial encounter (principal); Y92.9 Unspecified place or not applicable; Y93.9 Activity, unspecified; Y99.9 Unspecified external cause status; W19.XXXA Unspecified fall, initial encounter; Z88.8 Allergy status to other drugs, medicaments and biological substances; Z79.51 Long term (current) use of inhaled steroids; Z79.1 Long term (current) use of non-steroidal anti-inflammatories (NSAID); Z79.899 Other long term (current) drug therapy

== ENCOUNTER 2024-12-09 10:40 | Emergency (ER) | payer MEDICARE, OTHER ==
[~2024-12-09] VITALS: Ht 160 cm; Wt 210.0 kg
[2024-12-09 11:22] LABS: BASO # 0.0 10^3/uL (0.0-0.2); BASO % 0.3 % (0.0-1.0); EOS # 0.0 10^3/uL (0.0-0.5); EOS % 0.3 % (0.0-3.0); LYMPH # 3.7 10^3/uL (1.5-5.0); LYMPH % 34.6 % (24.0-44.0); MONO # 0.8 10^3/uL (0.0-0.8); MONO % 7.7 % (2.0-8.0); NEUTROPHILS # 6.0 10^3/uL (1.5-8.5); NEUTROPHILS % 56.5 % (36.0-66.0); PLATELET COUNT, AUTOMATED 257 10^3/uL (150-450)
[2024-12-09 11:34] LABS: INR 0.87
[2024-12-09 11:54] LABS: CPK CREATINE PHOSPHOKINASE 25 U/L (34-145)
[2024-12-09 11:55] LABS: ALT/SGPT 10 U/L (7.0-40); AST/SGOT 10 U/L (<34); CALCIUM LEVEL 8.8 MG/DL (8.3-10.6); CARBON DIOXIDE LEVEL 34 MMOL/L (20-31); CHLORIDE LEVEL 98 MMOL/L (98-107); CK-MB VALUE MASS 1.0 NG/ML (<3.6); CREATININE FOR GFR 1.58 MG/DL (0.55-1.30); GLOMERULAR FILTRATION RATE 32.5 (>32); MB/CK RELATIVE INDEX 4.00 (< OR =4); POTASSIUM SERUM 4.6 MMOL/L (3.5-5.1); SODIUM LEVEL 139 MMOL/L (136-145)
[2024-12-09 11:57] LABS: FREE T4 1.17 NG/DL (0.89-1.76)
[2024-12-09] MEDS ORDERED: ISOVUE-370 76% 100 ML VIAL As Ordered ONE (12:05)
[2024-12-09 13:31] LABS: CK-MB VALUE MASS 1.1 NG/ML (<3.6)
[2024-12-09 13:33] LABS: MAGNESIUM LEVEL 2.8 MG/DL (1.8-2.4)
[2024-12-09 13:35] LABS: CPK CREATINE PHOSPHOKINASE 27.0 U/L (34-145); MB/CK RELATIVE INDEX 4.07 (< OR =4)
[2024-12-09 14:46] LABS: CK-MB VALUE MASS 1.1 NG/ML (<3.6)
[2024-12-09 14:47] LABS: CPK CREATINE PHOSPHOKINASE 25.0 U/L (34-145); MB/CK RELATIVE INDEX 4.4 (< OR =4)
[2024-12-09 15:40] VITALS: BP 138/63; TEMP 98.3; O2SAT 99
== END 2024-12-09 15:40 | disposition home or self-care (01) ==
LOC: M ED 10:40 → EDBD 10:40 → M ED 15:40
DX: R07.9 Chest pain, unspecified (principal); I45.81 Long QT syndrome; I10 Essential (primary) hypertension; E78.5 Hyperlipidemia, unspecified; F17.210 Nicotine dependence, cigarettes, uncomplicated; Z88.8 Allergy status to other drugs, medicaments and biological substances; Z79.51 Long term (current) use of inhaled steroids; Z79.1 Long term (current) use of non-steroidal anti-inflammatories (NSAID); Z79.899 Other long term (current) drug therapy
CPT/HCPCS: 36415; 71045; 71275; 80047; 80048; 80076; 82550; 82553; 83690; 83735; 83880; 84439; 84443; 84484; 85025; 85610; 85730; 87486; 87581; 87633; 87798; 93005; 93041; 93970; 94760; 99285; Q9967

== ENCOUNTER 2025-01-11 18:22 | Inpatient (IN) | payer MEDICARE, OTHER ==
[~2025-01-11] VITALS: Ht 172.7 cm; Wt 97.2 kg
[~2025-01-11 18:22] MED LIST changes: -DULO1CAP6; +DULO1CAP6 PO
[2025-01-11 19:29] LABS: VENOUS BASE EXCESS 1.7 (-2.0-2.0); VENOUS HCO3 26.8 MMOL/L (23.0-27.0); VENOUS O2 SATURATION 98.1 % (60.0-80.0); VENOUS PARTIAL PRESSURE CO2 44.2 mmHg (38.0-50.0); VENOUS PARTIAL PRESSURE O2 108.7 mmHg (30.0-50.0); VENOUS PH 7.401 UNITS (7.330-7.430); VENOUS STANDARD HCO3 26.0 MMOL/L; VENOUS TOTAL CO2 28.2 MMOL/L (24.0-28.0)
[2025-01-11 19:37] LABS: BASO # 0.0 10^3/uL (0.0-0.2); BASO % 0.2 % (0.0-1.0); EOS # 0.0 10^3/uL (0.0-0.5); EOS % 0.2 % (0.0-3.0); LYMPH # 2.6 10^3/uL (1.5-5.0); LYMPH % 20.3 % (24.0-44.0); MONO # 0.7 10^3/uL (0.0-0.8); MONO % 5.7 % (2.0-8.0); NEUTROPHILS # 9.3 10^3/uL (1.5-8.5); NEUTROPHILS % 72.8 % (36.0-66.0); PLATELET COUNT, AUTOMATED 315 10^3/uL (150-450)
[2025-01-11 20:03] LABS: ETHYL ALCOHOL (ETHANOL) 0.004 % (0.000-0.010); VALPROIC ACID (DEPAKOTE) 60.9 UG/ML (50.0-100.0)
[2025-01-11 20:05] LABS: SALICYLATE LEVEL < 3.0 MG/DL (<30)
[2025-01-11 20:17] LABS: KETONE, URINE AUTO RFX NEGATIVE (NEGATIVE); NITRITE, URINE AUTO RFX NEGATIVE (NEGATIVE); RBC, URINE AUTO RFX TNTC /HPF (0-3); SQUAM EPITHELIAL CELL UR AURFX 1 /HPF (0-6)
[2025-01-11 20:19] LABS: LEUKOCYTE ESTERASE UR AUTO RFX 2+ (NEGATIVE); WBC, URINE AUTO RFX 48 /HPF (0-3)
[2025-01-11 20:24] LABS: ALT/SGPT < 9 U/L (7.0-40); AST/SGOT 19 U/L (<34); CALCIUM LEVEL 8.7 MG/DL (8.3-10.6); CARBON DIOXIDE LEVEL 28 MMOL/L (20-31); CHLORIDE LEVEL 102 MMOL/L (98-107); CK-MB VALUE MASS < 1.0 NG/ML (<3.6); CPK CREATINE PHOSPHOKINASE 28 U/L (34-145); CREATININE FOR GFR 1.47 MG/DL (0.55-1.30); GLOMERULAR FILTRATION RATE 35.4 (>32); MAGNESIUM LEVEL 2.4 MG/DL (1.8-2.4); PHOSPHORUS LEVEL 3.7 MG/DL (2.4-5.1); POTASSIUM SERUM 5.1 MMOL/L (3.5-5.1); SODIUM LEVEL 141 MMOL/L (136-145)
[2025-01-11 20:25] LABS: OSMOLALITY SERUM 305 MOSM/KG (280-301)
[2025-01-11 20:30] LABS: AMPHETAMINES LEVEL URINE NEGATIVE (NEGATIVE); BENZODIAZEPINES URINE NEGATIVE (NEGATIVE); CANNABINOIDS URINE NEGATIVE (NEGATIVE); COCAINE METABOLITE URINE NEGATIVE (NEGATIVE); METHADONE URINE NEGATIVE (NEGATIVE); OPIATES URINE NEGATIVE (NEGATIVE); PHENCYCLIDINE URINE NEGATIVE (NEGATIVE)
[2025-01-11 20:32] LABS: BARBITURATES URINE POSITIVE (NEGATIVE)
[2025-01-11] MEDS ORDERED: ISOVUE-370 76% 100 ML VIAL As Ordered ONE (21:35)
[2025-01-11 22:02] LABS: CK-MB VALUE MASS 1.2 NG/ML (<3.6); CPK CREATINE PHOSPHOKINASE 59.0 U/L (34-145); MB/CK RELATIVE INDEX 2.03 (< OR =4)
[2025-01-12] VITALS (7 sets, daily range): BP systolic 119–156; BP diastolic 57–78; TEMP 96.6–98.5; O2SAT 90–95
[2025-01-12] MEDS: VALPROATE SOD INJ 500 MG in D5W 50 ML IV SCH (01:25)
[2025-01-12] MEDS ORDERED: AMLO2.5T3 PO (03:42)
[2025-01-12] MEDS ORDERED: TORS20TA2 PO (03:42)
[2025-01-12] MEDS ORDERED: AMIT25TA19 PO (03:42)
[2025-01-12] MEDS ORDERED: MAGN400T33 PO (03:42)
[2025-01-12] MEDS ORDERED: TOPI-256 PO (03:42)
[2025-01-12] MEDS ORDERED: FERR325T19 PO (03:42)
[2025-01-12] MEDS ORDERED: TELM1TAB33 PO (03:42)
[2025-01-12] MEDS ORDERED: CYAN100049 PO (03:42)
[2025-01-12] MEDS ORDERED: VITA100093 PO (03:47)
[2025-01-12] MEDS ORDERED: CINA30TA5 PO (03:47)
[2025-01-12] MEDS ORDERED: MECL25CH45 PO (04:01)
[2025-01-12] MEDS ORDERED: FURO20TA2 PO (04:01)
[2025-01-12] MEDS ORDERED: HOME MED LIST COMPLETE! XX SCH (04:05)
[2025-01-12 05:27] LABS: ALT/SGPT < 9 U/L (7.0-40); AST/SGOT 10 U/L (<34); CALCIUM LEVEL 8.2 MG/DL (8.3-10.6); CARBON DIOXIDE LEVEL 31 MMOL/L (20-31); CHLORIDE LEVEL 102 MMOL/L (98-107); CREATININE FOR GFR 1.50 MG/DL (0.55-1.30); GLOMERULAR FILTRATION RATE 34.6 (>32); POTASSIUM SERUM 4.2 MMOL/L (3.5-5.1); SODIUM LEVEL 141 MMOL/L (136-145)
[2025-01-12] MEDS: VALPROATE SOD INJ 500 MG in DEXTROSE 5% (D5W) ADV/MINI-BAG 50 ML IV SCH (13:24)
[2025-01-12] MEDS ORDERED: ALBUTEROL 90 MCG/ACT 8 GM HFA INHALER INH PRN (14:00)
[2025-01-12] MEDS ORDERED: PILL CUTTER 1 EACH XX PRN (14:15)
[2025-01-12] MEDS: PRIMIDONE 50MG TAB PO ONE (14:54)
[2025-01-12] MEDS: amLODIPine 5 MG TAB PO ONE (14:54)
[2025-01-12] MEDS: cefTRIAXone SOD 1 GM in DEXTROSE 5% (D5W) ADV/MINI-BAG 50 ML IV SCH (15:56)
[2025-01-12] MEDS: VANCOMYCIN HCL 1,500 MG, VIAL MATE ADAPTER 1 EACH in NS 500 ML IV ONE (17:08)
[2025-01-12] MEDS: PRIMIDONE 50MG TAB PO SCH (20:55)
[2025-01-12] MEDS: DIVALPROEX 250 MG TAB PO SCH (20:55)
[2025-01-12] MEDS: AMITRIPTYLINE 25 MG TABLET PO SCH (20:55)
[2025-01-12] MEDS: CINACALCET 30 MG TAB PO SCH (20:55)
[2025-01-12] MEDS: ATORVASTATIN 20 MG TAB PO SCH (20:55)
[2025-01-13 04:06] VITALS: BP 150/66; TEMP 97.8; O2SAT 93
[2025-01-13] MEDS: HEPARIN SOD 5000 UNITS/ML 1 ML VIAL/SYRINGE SQ SCH (06:04)
[2025-01-13 06:51] LABS: PLATELET COUNT, AUTOMATED 241 10^3/uL (150-450)
[2025-01-13 07:17] LABS: VANCOMYCIN RANDOM 16.9 UG/ML
[2025-01-13 07:32] LABS: CALCIUM LEVEL 8.1 MG/DL (8.3-10.6); CARBON DIOXIDE LEVEL 30.0 MMOL/L (20-31); CHLORIDE LEVEL 105.0 MMOL/L (98-107); CREATININE FOR GFR 1.48 MG/DL (0.55-1.30); GLOMERULAR FILTRATION RATE 35.1 (>32); POTASSIUM SERUM 4.2 MMOL/L (3.5-5.1); SODIUM LEVEL 142.0 MMOL/L (136-145)
[2025-01-13 07:54] VITALS: BP 134/60; TEMP 96.5; O2SAT 94
[2025-01-13] MEDS ORDERED: VANCOMYCIN HCL 1,000 MG, VIAL MATE ADAPTER 1 EACH in NS 250 ML IV SCH (10:00)
[2025-01-13] MEDS ORDERED: CIPR500T39 PO (10:25)
[2025-01-13] MEDS ORDERED: DIVA-65 PO (10:25)
[2025-01-13] MEDS: OMEPRAZOLE 20MG CAP PO SCH (10:49)
[2025-01-13 10:50] VITALS: BP 134/60
[2025-01-13] MEDS: TOPIRAMATE 25 MG TAB PO SCH (10:50)
[2025-01-13] MEDS: CYANOCOBALAMIN 500 MCG TAB PO SCH (10:50)
[2025-01-13] MEDS: TELMISARTAN 20 MG TAB PO SCH (10:51)
[2025-01-13] MEDS: ASPIRIN 81 MG ENTERIC TABLET PO SCH (10:52)
[2025-01-13] MEDS: VITAMIN D 1,000 INTERNATIONAL UNITS TABLET PO SCH (10:52)
[2025-01-13] MEDS: CIPROFLOXACIN 500 MG TABLET PO SCH (10:53)
[2025-01-14 23:52] LABS: PHENOBARBITAL (PRIMIDONE) 7.8 mg/L (15.0-40.0); PRIMIDONE, SERUM 3.3 mg/L (5.0-12.0)
== END 2025-01-13 13:30 | disposition home health service (06) | DRG 100 ==
LOC: M ED 18:22 → M ED INP 18:23 → M PCU 01-12 01:54 → OBSVTOIN 01-12 10:47
PROVIDERS: ADMIT Student in an Organized Health Care Education/Training Program; ATTEND Internal Medicine
DX: G40.409 Other generalized epilepsy and epileptic syndromes, not intractable, without status epilepticus (principal); G93.41 Metabolic encephalopathy; N39.0 Urinary tract infection, site not specified; I10 Essential (primary) hypertension; E78.5 Hyperlipidemia, unspecified; K21.9 Gastro-esophageal reflux disease without esophagitis; B96.5 Pseudomonas (aeruginosa) (mallei) (pseudomallei) as the cause of diseases classified elsewhere; Z66 Do not resuscitate; Z74.1 Need for assistance with personal care; Z99.3 Dependence on wheelchair; Z79.899 Other long term (current) drug therapy; Z79.82 Long term (current) use of aspirin; Z88.8 Allergy status to other drugs, medicaments and biological substances

== ENCOUNTER → 2025-02-05 | Outpatient (CLI) | payer MEDICARE, OTHER ==
[~2025-02-05] MED LIST changes: +AMLO2.5T3 PO; +CINA30TA5 PO; +CIPR500T39 PO; +CYAN100049 PO; +DIVA-65 PO; +FERR325T19 PO; +FURO20TA2 PO; +MAGN400T33 PO; +MECL25CH45 PO; +TELM1TAB33 PO; +TOPI-256 PO; +TORS20TA2 PO; +VITA100093 PO
== END ==
LOC: M PLAIMG 14:14
PROVIDERS: ATTEND Nurse Practitioner Family
DX: I10 Essential (primary) hypertension (principal)

== ENCOUNTER → 2025-02-23 | Outpatient (CLI) | payer MEDICARE, OTHER ==
[2025-02-23 17:43] LABS: BASO # 0.0 10^3/uL (0.0-0.2); BASO % 0.3 % (0.0-1.0); EOS # 0.2 10^3/uL (0.0-0.5); EOS % 1.5 % (0.0-3.0); LYMPH # 4.6 10^3/uL (1.5-5.0); LYMPH % 39.2 % (24.0-44.0); MONO # 1.4 10^3/uL (0.0-0.8); MONO % 12.2 % (2.0-8.0); NEUTROPHILS # 5.4 10^3/uL (1.5-8.5); NEUTROPHILS % 45.4 % (36.0-66.0); PLATELET COUNT, AUTOMATED 185 10^3/uL (150-450)
[2025-02-23 17:49] LABS: VALPROIC ACID (DEPAKOTE) 93.6 UG/ML (50.0-100.0)
[2025-02-23 17:50] LABS: IRON (FE) 99 UG/DL (50-170); PERCENT SATURATION 30.7 % (13.2-45.0)
[2025-02-23 17:51] LABS: ALT/SGPT 9 U/L (7.0-40); AST/SGOT 14 U/L (<34); CALCIUM LEVEL 9.0 MG/DL (8.3-10.6); CARBON DIOXIDE LEVEL 35 MMOL/L (20-31); CHLORIDE LEVEL 96 MMOL/L (98-107); CREATININE FOR GFR 1.60 MG/DL (0.55-1.30); FREE T4 1.21 NG/DL (0.89-1.76); GLOMERULAR FILTRATION RATE 32.0 (>32); MAGNESIUM LEVEL 2.7 MG/DL (1.8-2.4); POTASSIUM SERUM 4.5 MMOL/L (3.5-5.1); PTH INTACT 271.9 PG/ML (18.5-88.0); SODIUM LEVEL 140 MMOL/L (136-145)
[2025-02-23 17:52] LABS: TOTAL 25(OH) VITAMIN D 62.6 NG/ML (20.0-100.0)
[2025-02-23 17:59] LABS: VITAMIN B12 LEVEL > 2000 PG/ML (211-911)
[2025-02-23 18:06] LABS: ESTIMATED AVERAGE GLUCOSE 120.0 MG/DL (60-110)
[2025-02-27 09:17] LABS: PHENOBARBITAL (PRIMIDONE) 10.1 mg/L (15.0-40.0); PRIMIDONE, SERUM 5.0 mg/L (5.0-12.0)
== END ==
LOC: M PLALAB 13:20
PROVIDERS: ATTEND Nurse Practitioner Family
DX: D64.9 Anemia, unspecified (principal); I10 Essential (primary) hypertension; G40.909 Epilepsy, unspecified, not intractable, without status epilepticus; E55.9 Vitamin D deficiency, unspecified; E78.00 Pure hypercholesterolemia, unspecified; R73.09 Other abnormal glucose; Z79.899 Other long term (current) drug therapy

== ENCOUNTER → 2025-02-23 | Outpatient (CLI) | payer MEDICARE, OTHER ==
[2025-02-23 17:44] LABS: BASO # 0.0 10^3/uL (0.0-0.2); BASO % 0.4 % (0.0-1.0); EOS # 0.1 10^3/uL (0.0-0.5); EOS % 1.3 % (0.0-3.0); LYMPH # 4.1 10^3/uL (1.5-5.0); LYMPH % 36.9 % (24.0-44.0); MONO # 1.4 10^3/uL (0.0-0.8); MONO % 13.0 % (2.0-8.0); NEUTROPHILS # 5.3 10^3/uL (1.5-8.5); NEUTROPHILS % 47.4 % (36.0-66.0); PLATELET COUNT, AUTOMATED 198 10^3/uL (150-450)
[2025-02-23 18:08] LABS: VALPROIC ACID (DEPAKOTE) 93.7 UG/ML (50.0-100.0)
[2025-02-23 18:11] LABS: ALT/SGPT < 9 U/L (7.0-40); AST/SGOT 13 U/L (<34); CALCIUM LEVEL 9.3 MG/DL (8.3-10.6); CARBON DIOXIDE LEVEL 35 MMOL/L (20-31); CHLORIDE LEVEL 94 MMOL/L (98-107); CREATININE FOR GFR 1.61 MG/DL (0.55-1.30); GLOMERULAR FILTRATION RATE 31.8 (>32); POTASSIUM SERUM 4.3 MMOL/L (3.5-5.1); SODIUM LEVEL 138 MMOL/L (136-145)
== END ==
LOC: M PLALAB 13:22
PROVIDERS: ATTEND Psychiatry & Neurology Neurology
DX: R56.9 Unspecified convulsions (principal); Z79.899 Other long term (current) drug therapy